=== PATIENT | male | born 1945 | race Caucasian/White ===

== ENCOUNTER 2016-05-15 10:15 | Day surgery (SDC) | payer MEDICARE, BC ==
[2016-05-15] VITALS (22 sets, daily range): BP systolic 96–169; BP diastolic 46–100; PULSE 65–97; RESP 15–26; Ht 185.4 cm; Wt 134.0 kg
[~2016-05-15] VITALS: Ht 185.4 cm; Wt 134.0 kg
[~2016-05-15 10:15] MED LIST: CARV3.1260 PO; DULA1.5P SQ; DULO60CA6 PO; EZET1TAB10 PO; LANT3I SC; MAGN400T38 PO; METF-382 PO; NOVO3I SC; PERCOCET PO; PIOG30TA2 PO; RIVA10TA PO; TAMS-14 PO; ZOLP10TA PO
[2016-05-15] MEDS ORDERED: ROPIVACAINE 0.5 % 30 ML VIAL ONE ×3 (11:03→13:40)
[2016-05-15] MEDS ORDERED: POVIDONE IODINE 10% 28.4 GM OINT ONE ×2 (11:03→15:52)
[2016-05-15] MEDS ORDERED: ROCURONIUM 50 MG INJ ONE ×2 (12:11→14:59)
[2016-05-15] MEDS ORDERED: PROPOFOL 20 ML ONE ×2 (12:11→14:59)
[2016-05-15] MEDS ORDERED: SUCCINYLCHOLINE CHLORIDE 100 MG/5 ML SYG IV ONE ×2 (12:11→14:59)
[2016-05-15] MEDS ORDERED: LIDOCAINE 2% (SDV) 5 ML INJ ONE ×2 (12:11→14:59)
[2016-05-15] MEDS ORDERED: MIDAZOLAM 1 MG/ML 2 ML INJ ONE (12:11)
[2016-05-15 12:20] LABS: BASOPHILS % 0.2 % (0.0-2.0); EOSINOPHILS # 0.2 10^3/ul (0.0-0.5); EOSINOPHILS % 2.7 % (0.0-7.0); HEMATOCRIT 40.3 % (42.0-52.0); HEMOGLOBIN 13.3 g/dl (14.0-18.0); LYMPHOCYTES % 24.4 % (15.0-51.0); MEAN CORPUSCULAR HEMOGLOBIN 25.3 pg (29.0-33.0); MEAN CORPUSCULAR HGB CONC 32.9 g/dl (32.0-37.0); MEAN CORPUSCULAR VOLUME 76.8 fl (82.0-101.0); MEAN PLATELET VOLUME 8.9 fl (7.4-10.4); MONOCYTE # 0.4 10^3/ul (0.3-0.9); NEUTROPHIL # 5.4 10^3/ul (1.6-7.5); NEUTROPHILS % 67.7 % (39.0-77.0); PLATELET COUNT 150 10^3/UL (140-440); RED BLOOD COUNT 5.25 10^6/ul (4.70-6.10)
[2016-05-15 12:21] LABS: ADD UMIC NO; URINE BILIRUBIN (Dip) NEGATIVE (NEGATIVE); URINE BLOOD (Dip) NEGATIVE (NEGATIVE); URINE COLOR LT. YELLOW (YELLOW); URINE GLUCOSE (Dip) NEGATIVE (NEGATIVE); URINE KETONES (Dip) NEGATIVE (NEGATIVE); URINE LEUKOCYTE ESTERASE (Dip) NEGATIVE (NEGATIVE); URINE NITRITE (Dip) NEGATIVE (NEGATIVE); URINE TOTAL PROTEIN (Dip) NEGATIVE (NEGATIVE); URINE UROBILINOGEN (Dip) 0.2 E.U./dL (0.1-1.0)
[2016-05-15 12:23] LABS: CONDITION 1; LH ANALYZER COMMENTS 1
[2016-05-15 12:31] LABS: ALBUMIN 3.7 g/dl (3.3-4.9)
[2016-05-15 12:32] LABS: INR 1.09; PROTIME 14.1 Sec (12.2-14.2); PT RATIO 1.1
[2016-05-15 12:33] LABS: PARTIAL THROMBOPLASTIN TIME 30.3 Sec (25.0-35.0); POTASSIUM 4.4 mmol/L (3.5-5.1)
[2016-05-15 12:34] LABS: ALBUMIN/GLOBULIN RATIO 1.23; BILIRUBIN,INDIRECT 0.7 mg/dl (0-1.1); BILIRUBIN,TOTAL 0.7 mg/dl (0.2-1.3); TOTAL PROTEIN 6.7 g/dl (6.1-8.1)
[2016-05-15 12:35] LABS: CALCIUM 9.1 mg/dl (8.4-10.2); CREATININE 0.85 mg/dl (0.61-1.24)
--- NOTE | 2016-05-15 13:35 | HPN ---
Date/Time of Note Date/Time of Note DATE: 05/15/16 TIME: 13:35 Interval H&P Admission Note Pt. seen H&P reviewed: No system changes KATIA CASILLAS MD May 15, 2016 13:35
[2016-05-15] MEDS: SOD CHLORIDE 0.9% 1,000 ML IV SCH ×2 (13:42→20:25)
[2016-05-15] MEDS ORDERED: CEFAZOLIN 1 GM INJ IV SCH (14:00)
[2016-05-15] MEDS ORDERED: DIPHENHYDRAMINE 25 MG CAP PO PRN (14:00)
[2016-05-15] MEDS ORDERED: ONDANSETRON 4 MG INJ IV PRN ×2 (14:00→16:30)
[2016-05-15] MEDS ORDERED: HYDROmorphONE 0.2 MG/ML PCA IV SCH (14:00)
[2016-05-15] MEDS ORDERED: VANCOMYCIN IV PER PHARMACY XX SCH (14:00)
[2016-05-15] MEDS ORDERED: BISACODYL 10 MG SUPP PR PRN (14:00)
[2016-05-15] MEDS ORDERED: FENTAnyl 50 MCG/ML VIAL ONE (14:13)
[2016-05-15] MEDS ORDERED: VANCOMYCIN 1 GM (PMX) 250 ML ONE (14:26)
[2016-05-15] MEDS ORDERED: ONDANSETRON 4 MG INJ ONE (14:59)
[2016-05-15] MEDS ORDERED: METOCLOPRAMIDE 10 MG INJ ONE (15:00)
[2016-05-15] MEDS ORDERED: POLYMYXIN B 500000 UNIT INJ ONE (15:40)
[2016-05-15] MEDS ORDERED: VANCOMYCIN 1 GM INJ ONE (15:41)
[2016-05-15] MEDS ORDERED: BACITRACIN 50000 UNITS INJ ONE (15:42)
[2016-05-15] MEDS ORDERED: NEOSTIGMINE 3 MG/3 ML SYRINGE ONE (15:57)
[2016-05-15] MEDS ORDERED: GLYCOPYRROLATE 1 MG INJ ONE (15:57)
[2016-05-15] MEDS ORDERED: HYDROmorphONE 2 MG/ML SYG ONE (15:59)
--- NOTE | 2016-05-15 16:04 | RADRPT ---
PROCEDURE: Intraoperative imaging of the right ankle with fluoroscopy. CLINICAL INDICATION: Right ankle pain. Intraoperative. TECHNIQUE: Four images of the right ankle were obtained in the operating room with an image intens ifier. No radiologist was in attendance. 16.7 seconds of fluoroscopy time was used. COMPARISON: No prior study is available for comparison. FINDINGS: Images demonstrate a surgical instrument overlying the tibiotalar joint. IMPRESSION: 1. Intraoperative imaging of the right ankle. RPTAT: QQ .Job Whitfield MD, Date Time Electronically viewed and signed by .Job Whitfield MD, on 05/15/2016 16:04 .R/
[2016-05-15] MEDS ORDERED: HYDROmorphONE (0.2 MG/ML) 10ML SYG IV PRN ×3 (16:30)
[2016-05-15] MEDS ORDERED: PROCHLORPERAZINE 10 MG INJ IV PRN (16:30)
[2016-05-15] MEDS ORDERED: DIPHENHYDRAMINE 50 MG INJ IV PRN (16:30)
[2016-05-15] MEDS ORDERED: OXYCODONE/ACETAMINOPHEN (5/325) TAB PO PRN (16:30)
[2016-05-15] MEDS ORDERED: FENTAnyl 50 MCG/ML VIAL IV PRN (16:30)
[2016-05-15] MEDS ORDERED: MEPERIDINE 25 MG INJ IV PRN (16:30)
[2016-05-15] MEDS ORDERED: INSULIN ASPART [NOVOLOG] 3 ML PEN SC ONE (16:30)
--- NOTE | 2016-05-15 17:24 | RADRPT ---
PROCEDURE: XR Chest. CLINICAL INDICATION: Check PICC line position. Line placement for vancomycin infusion. TECHNIQUE: Single frontal view. COMPARISON: 09/14/2015. FINDINGS: There is a left arm PICC line with the tip in the mid left subclavian vein. The lungs are clear. The heart size is normal. There is no pleural effusion. There is no pneumothorax. IMPRESSION: 1. Left arm PICC line with the tip in the mid left subclavian vein. This is not acceptable for van comycin administration. This needs to be repositioned with the tip in the superior vena cava. 2. Otherwise normal chest radiograph. Call report: A call report of the findings was made to the patient's nurse Sheryl Lai on 017 at 1720 hours. RPTAT: QQ .Job Whitfield MD, MD Date Time Electronically viewed and signed by .Job Whitfield MD, MD on 05/15/2016 17:24 .R/
[2016-05-15] MEDS: CEFAZOLIN 2 GM/50 ML (PMX) 50 ML IVPB SCH (18:01)
[2016-05-15] MEDS: morphine 10 MG INJ IV PRN (18:44)
[2016-05-15] MEDS ORDERED: VANCOMYCIN 1 GM in NS 250 ML IVPB ONE (19:30)
[2016-05-15] MEDS: SENNA/DOCUSATE NA (8.6MG/50MG) TAB PO SCH (20:27)
[2016-05-15] MEDS: OXYCODONE/ACETAMINOPHEN (5/325) TAB PO PRN (20:27)
[2016-05-15] MEDS ORDERED: GLUCOSE GEL 15 GRAM TUBE BUCCAL PRN (20:30)
[2016-05-15] MEDS ORDERED: ZOLPIDEM 5 MG TAB PO PRN (20:30)
[2016-05-15] MEDS: DULOXETINE 30 MG CAP DR PO SCH (20:30)
[2016-05-15] MEDS ORDERED: DEXTROSE 50% 50 ML SYRINGE IV PRN ×2 (20:30)
[2016-05-15] MEDS ORDERED: ARIPIPRAZOLE 2 MG TAB GTB SCH (20:30)
[2016-05-15] MEDS ORDERED: GLUCOSE GEL 15 GRAM TUBE PO PRN ×2 (20:30)
[2016-05-15] MEDS ORDERED: GLUCAGON 1 MG INJ IM PRN (20:30)
[2016-05-15] MEDS: INSULIN ASPART [NOVOLOG] 3 ML PEN SC SCH (20:35)
[2016-05-15 20:49] LABS: BASOPHILS % 0.4 % (0.0-2.0); EOSINOPHILS # 0.1 10^3/ul (0.0-0.5); EOSINOPHILS % 1.3 % (0.0-7.0); HEMATOCRIT 37.1 % (42.0-52.0); HEMOGLOBIN 12.2 g/dl (14.0-18.0); LYMPHOCYTES # 1.8 10^3/ul (0.8-2.9); LYMPHOCYTES % 17.7 % (15.0-51.0); MEAN CORPUSCULAR HEMOGLOBIN 25.2 pg (29.0-33.0); MEAN CORPUSCULAR HGB CONC 32.9 g/dl (32.0-37.0); MEAN CORPUSCULAR VOLUME 76.8 fl (82.0-101.0); MEAN PLATELET VOLUME 8.9 fl (7.4-10.4); MONOCYTE # 0.3 10^3/ul (0.3-0.9); MONOCYTES % 2.6 % (0.0-11.0); NEUTROPHIL # 8.1 10^3/ul (1.6-7.5); PLATELET COUNT 136 10^3/UL (140-440); RED BLOOD COUNT 4.83 10^6/ul (4.70-6.10); RED CELL DISTRIBUTION WIDTH 16.8 % (11.5-14.5); UNCORRECTED WBC 10.4 10^3/ul (4.8-10.8); WHITE BLOOD COUNT 10.4 10^3/ul (4.8-10.8)
[2016-05-15 20:50] LABS: CONDITION 1; LH ANALYZER COMMENTS 1
[2016-05-15] MEDS: metFORMIN 500 MG TAB NGT SCH (20:51)
[2016-05-15] MEDS ORDERED: TAMSULOSIN (SR) 0.4 MG CAP PO SCH (21:00)
[2016-05-15 21:03] LABS: POTASSIUM 3.9 mmol/L (3.5-5.1)
[2016-05-15 21:05] LABS: CREATININE 0.86 mg/dl (0.61-1.24)
[2016-05-15 21:06] LABS: CALCIUM 8.7 mg/dl (8.4-10.2); MAGNESIUM 1.3 mg/dl (1.7-2.5)
--- NOTE | 2016-05-15 22:09 | CONS ---
DATE OF ADMISSION: 05/15/2016 DATE OF CONSULTATION: 05/15/2016 TYPE OF CONSULTATION: Infectious Disease. REASON FOR CONSULTATION: Antibiotic management. HISTORY OF PRESENT ILLNESS: Garett Figueredo is a pleasant 71-year-old white male with numerous prob lems who comes in now for essentially fusion of his ankle. He is to undergo right ankle arthroscopy , extensive right ankle debridement, washout, multiple cultures and arthrodesis, status post ankle f usion infection. The patient is well known to our service and has been seen on a number of occasion s. He was admitted on 09/08/2015. His past problems at that time were: 1. Hypertension. 2. Adult-onset diabetes mellitus, on Metformin, Actos and insulin. 3. Status post knee replacement. 4. Status post lumbosacral back fusion. He also had right ankle surgery, which was done on 016 and had ankle fusion at that time. He had arthroscopy of the right ankle with debridement and i nsertion of demineralized bone and arthrodesis with 3 screws to the right ankle. Postoperatively, susannah fry had some urinary retention. During that hospital course, he was placed to some drainage. He was started on vancomycin and Zosyn then vancomycin and Levaquin. He grew out Staph aureus which was ac tually sensitive to everything. His blood cultures were negative at that time. He had a PICC line that was sent out on that regimen. He was noted to have a subacute osteomyelitis of the right ankle . He had some implants. He now comes in for a fusion of the right ankle. PAST MEDICAL HISTORY: Operations as outlined. FAMILY HISTORY: Noncontributory. He has 1 brother and his parents are . He has a signific ant other. He has no children. SOCIAL HISTORY: Does not smoke, drink or abuse drugs. He has a pet dog at home. ALLERGIES: NONE TO PENICILLIN, SULFA OR FOODS. MEDICATIONS: Per chart. REVIEW OF SYSTEMS: As per HPI. PHYSICAL EXAMINATION: GENERAL: The patient is a well-developed, somewhat obese white male status post surgery today. VITAL SIGNS: Stable. He is afebrile. SKIN: Without generalized rash. HEENT: Within normal limits. NECK: Supple. LYMPH NODES: None palpable. CHEST: Decreased breath sounds at the bases. HEART: Without murmur or gallop. ABDOMEN: Soft, nontender, without organosplenomegaly or masses. EXTREMITIES: Without cyanosis, clubbing, or edema. The right ankle is wrapped, casted or at least wrapped. RECTAL AND GENITAL: Deferred. NEUROLOGIC: No focal neurological abnormalities. IMPRESSION AND PLAN: We are going to start Mr. Figueredo on vancomycin and await the cultures. If the cultures are sensitive to everything, we will send him out on ceftriaxone 1 gram q. 24. I will dict ate my findings to Dr. Thomas. Dictated By: BRIGITTE JIMENEZ MD, JD/RIAZ Conf#: [id number] DID#: [id number]
--- NOTE | 2016-05-15 22:39 | OPR ---
DATE OF OPERATION: 05/15/2016 PREOPERATIVE DIAGNOSES: 1. Status post arthroscopic fusion left ankle. 2. Status post infection of the left ankle after fusion with hardware removal and intravenous antib iotics for 6 weeks. 3. Persistent pain with secondary to degenerative joint disease, rule out residual infection. POSTOPERATIVE DIAGNOSES: 1. Status post arthroscopic fusion left ankle. 2. Status post infection of the left ankle after fusion with hardware removal and intravenous antib iotics for 6 weeks. 3. Persistent pain with secondary to degenerative joint disease, rule out residual infection. NAME OF OPERATION: 1. Arthroscopy of the left ankle, with soft tissue distraction. 2. Extensive debridement of the ankle and removal of much devitalized scar tissue and some bone. 3. Multiple bone and soft tissue cultures sent for anaerobic, aerobic, fungus, and TB. 4. Use of fluoroscopy to verify the position of the ankle and that distraction was still possible a nd there was motion at the nonunion site. 5. Short leg splint. SURGEON: Curtis Casillas MD BOAT PILOT: Feliciano Castaneda ANESTHESIA: General with popliteal block. TOURNIQUET TIME: 70 minutes. DESCRIPTION OF PROCEDURE: The patient taken to the operating room and placed supine. Satisfactory general anesthesia was given after popliteal block had been done. No antibiotics were given until w e got our cultures. The right leg was prepped and draped in the usual manner. As it was distracted , we brought the fluoroscope in to verify that there was still motion at the nonunion site and to fa cilitate our portals. Anteromedial, anterolateral portals were made. Significant fibrosis and scar ring throughout the ankle centrally corresponding to where there was a gap on the x-ray. Using a pi tuitary rongeur, multiple soft tissue cultures were taken for aerobics, anaerobes, TB, and fungus. A special bone biopsy needle was used to remove bone and send it again for aerobes, anaerobes, fungu s, and TB. Multiple specimens were also sent for cytology and pathology assessment. After complete debridement, it was noted that there certainly some bone loss within the tibiotalar joint, which we noticed on x-ray and CT scan. Vancomycin 1 gram was given intravenously slowly after all our cultu res were done. We washed out the ankle with 12 liters of saline and then we inserted tobramycin, vancomycin, and er ythromycin in another 3 liter bag and ran it through the ankle. The wounds were then closed with 4- 0 black nylon. Compression dressing was applied as a push splint in neutral position. Interprocedu re sponge and needle count was correct. The patient tolerated procedure well. No aida infection w as seen, but an awful lot of fibrous debris. AGENCY DEVELOPMENT MANAGER ORTHOPEDIC SURGEON: During the procedure, an assistant golf professional orthopedic surgeon was used at my request. The assistant golf professional helped with distraction, helped with manipulation of the ankle, and with obt aining the cultures. Without a skilled assistant golf professional, this could not have been done; therefore, should be compensated. Dictated By: CURTIS CASILLAS MD RF/NTS Conf#: [id number] DID#: [id number]
[2016-05-16] MEDS: CEFAZOLIN 2 GM/50 ML (PMX) 50 ML IVPB SCH ×3 (00:53→18:00)
[2016-05-16] MEDS: OXYCODONE/ACETAMINOPHEN (5/325) TAB PO PRN ×4 (00:53→17:31)
[2016-05-16] MEDS ORDERED: ACCUCHECK AT 2AM (Patients on SS coverage) XX SCH (02:00)
[2016-05-16] MEDS: morphine 10 MG INJ IV PRN ×2 (03:03→16:33)
[2016-05-16 04:35] VITALS: BP 96/53; PULSE 79; RESP 19
--- NOTE | 2016-05-16 04:47 | CONS ---
DATE OF ADMISSION: 05/15/2016 DATE OF CONSULTATION: 05/15/2016 REASON FOR CONSULTATION: Internal medicine consult for diabetes and cardiac arrhythmia status post surgery. Medical management of a surgical patient. REQUESTING PHYSICIAN: Dr. Curtis Thomas of orthopedic surgery. HISTORY OF PRESENT ILLNESS: The patient is a very pleasant 71-year-old gentleman with history of di abetes and depression who presented to the hospital status post right ankle incision and drainage an d washout. The patient is currently resting well on the floor. The patient has a long history of right ankle infection which initially started out in 2013 status p ost mechanical injury. The patient had an ORIF and hardware placed in 2013. The patient continued to have pain and had new hardware placed in 2015 that became infected. The patient had his hardware removed in August 2015. Since then, the patient has been on IV antibiotics and is here for an I and D and washout of the right ankle. The patient underwent the washout very successfully without any co mplications. No acute blood loss. Cultures were sent in for identification. The patient is currently on empiric antibiotics of vancom ycin. He has a PICC line and is on perioperative antibiotics of vancomycin and cefazolin. The patient denies any lightheadedness or chest pain. Denies any shortness of breath. No dizziness . The patient does complain of appropriate right ankle tenderness and pain status post surgery. REVIEW OF SYSTEMS: A 12-point review of systems is otherwise negative other than what is mentioned in HPI. ALLERGIES: NO KNOWN DRUG ALLERGIES. CURRENT MEDICATIONS: List in the hospital includes 1. Xarelto 10 mg p.o. every day. 2. Vancomycin 1.5 mg every 12 hours. 3. Cefazolin 1 gram every 8 hours. 4. Dilaudid ENGLISH AS A SECOND LANGUAGE INSTRUCTOR. 5. Fentanyl patch. 6. Zofran 4 mg IV q. 4 hours as needed. 7. Demerol 1.25 mg as needed. 8. Compazine 5 mg every 4 hours as needed. HOME MEDICATIONS: The patient is currently on the following medications 1. Flomax 0.4 mg p.o. at bedtime. 2. Xarelto 10 mg p.o. every day. 3. Coreg 3.125 mg p.o. b.i.d. 4. Vytorin 10/40 mg p.o. at bedtime. 5. Cymbalta 60 mg p.o. every day. 6. Percocet 10/325 mg p.o. q. 4 hours as needed. 7. Ambien 10 mg p.o. every day at bedtime p.r.n. for insomnia. 8. Insulin sliding scale. 9. Metformin 1000 mg p.o. b.i.d. 10. Actos 30 mg p.o. every day. PAST MEDICAL HISTORY: 1. BPH. 2. Cardiac arrhythmia with bigeminy and trigeminy, asymptomatic, controlled on Coreg. 3. Depression with Cymbalta and Abilify. 4. Right ankle pain secondary to joint infection. PAST SURGICAL HISTORY: As per HPI. FAMILY HISTORY: Reviewed and noncontributory. PAST HOSPITALIZATION: As per HPI. SOCIAL HISTORY: The patient has a 24-hour caregiver, lives with a partner, and denies any current d rug, alcohol, or tobacco. PHYSICAL EXAMINATION: VITAL SIGNS: On the hospital floor, temperature is 98, blood pressure is 133/71, pulse of 82, respi ratory rate 16, pulse oximetry 99% on 2 liters nasal cannula. GENERAL: The patient was awake, alert, and oriented x4. HEENT: Normocephalic, atraumatic. Sclerae nonicteric. NECK: Thick, supple, no lymphadenopathy noted. CARDIOVASCULAR: Regular rate and rhythm. Normal S1, S2. LUNGS: Clear to auscultation bilaterally. Good respiratory effort. ABDOMEN: Soft, nontender, nondistended, normoactive bowel sounds. EXTREMITIES: No clubbing, cyanosis, or edema. The right leg is in a cast. The patient is able to wiggle his toes. No evidence of cyanosis or neuropathy. LABORATORY DATA: Current laboratories demonstrate WBC is 8, hemoglobin 13.3, platelets 150. Chemis try: Sodium 139, potassium 4.4. BUN is 22, creatinine 0.8, glucose is 166, AST 20, total protein i s 6.7. ASSESSMENT AND PLAN: The patient is a very pleasant but unfortunate 71-year-old gentleman with hist ory of diabetes and depression who presented to the hospital and is currently status post right ankl e incision and drainage and washout. The patient is currently on perioperative antibiotics with emp iric IV antibiotics currently in the hospital after tolerating procedure well without any complicati ons. 1. Status post washout of the right ankle. Management per primary surgeon. The patient will be re ceiving IV antibiotics under the direction of infectious diseases. We will await culture results. Continue current care. Provide pain control. 2. Cardiac arrhythmia, history of bigeminy. Physical examination demonstrates no aida overt cardi ac arrhythmias. EKG shows PVCs, but one in the chart demonstrates a normal sinus rhythm with a QTC interval of 429 without any evidence of an acute infarct. We will continue his Coreg. 3. Depression. We will continue the patient's Cymbalta and Abilify. The patient denies any curren t suicidal or homicidal ideation. We will continue his home medications. 4. Diabetes. We will start metformin and Actos, provide sliding scale insulin. 5. Insomnia. Provide Ambien. 6. Pain control. We will provide pain management with IV pain medications and oral pain medication s. 7. DVT prophylaxis. We will restart Xarelto. 8. GI prophylaxis. We will provide Pepcid, Colace, and Senna. 9. CODE STATUS: The patient is a FULL CODE. Thank you, Dr. Thomas, for allowing me to participate in the care of this patient. Dictated By: JOSÉ MIGUEL WHITNEY/RIAZ Conf#: [id number] DID#: [id number]
[2016-05-16] MEDS ORDERED: VANCOMYCIN 1.5 GM in SOD CHLORIDE 0.9% 250 ML IVPB SCH (05:00)
--- NOTE | 2016-05-16 07:19 | PN ---
Date/Time of Note Date/Time of Note DATE: 05/16/16 TIME: 07:15 Assessment/Plan VTE Prophylaxis VTE Prophylaxis Intervention: SCD's, other Lines/Catheters IV Catheter Type (from [facility]): Peripheral IV Urinary Cath still in place: No Assessment/Plan Chief Complaint/Hosp Course 1) POD#1 s/p right ankle arthroscopic I/D of failed fusion site 2) DM#2 3) Right ankle infection Problems: Assessment/Plan -Doing well -Appreciate ID's help -Sounds like PICC will need to be replaced today -Xarelto for DVT Prophylaxis -NWB RLE Subjective 24 Hr Interval Summary Free Text/Dictation Doing well this morning. No events overnight. Comfortable without pain. Moving toes but no return of sensation from block yet. Constitutional: improved, no complaints Eyes: no complaints ENT: no complaints Respiratory: no complaints Cardiovascular: no complaints, No chest pain Gastrointestinal: no complaints Genitourinary: no complaints Musculoskeletal: no complaints Skin: no complaints Neurologic: no complaints Endocrine: no complaints Lymphatic: no complaints Psychological: nl mood/affect, no complaints Immunologic: no complaints Exam/Review of Systems Vital Signs Vitals Vital Signs Date Time Temp Pulse Resp B/P Pulse Ox O2 Delivery O2 Flow Rate FiO2 05/16/16 04:35 98.3 79 19 96/53 95 Room Air 05/15/16 16:58 2.0 Intake and Output 05/15/16 05/15/16 05/16/16 15:00 23:00 07:00 Intake Total 1000 ml 240 ml 2350 ml Output Total 360 ml 1600 ml Balance 1000 ml -120 ml 750 ml Exam Splint in place on right foot, toes warm and well perfused with normal cap refill. Denies return of sensation currently. Easily dorsiflexing and plantarflexing toes. Splint fitting well. Constitutional: alert, oriented, well developed Results Result Diagram: 05/15/16201905/15/162019 Results 24 hrs Laboratory Tests Test 05/15/16 11:30 05/15/16 11:45 05/15/16 12:00 05/15/16 16:29 Urine Bilirubin NEGATIVE Urine Clarity CLEAR Urine Color LT. YELLOW Urine Glucose NEGATIVE Urine Hemoglobin NEGATIVE Urine Ketones NEGATIVE Urine Leukocyte Esterase NEGATIVE Urine Nitrite NEGATIVE Urine Specific [place] 1.025 Urine Total Protein NEGATIVE Urine Urobilinogen 0.2 E.U./dL Urine pH 5.5 Bedside Glucose 233 H 166 Activated Partial Thromboplast Time 30.3 Alanine Aminotransferase (ALT/SGPT) 24 Albumin 3.7 Albumin/Globulin Ratio 1.23 Alkaline Phosphatase 113 Anion Gap 15 Aspartate Amino Transf (AST/SGOT) 20 Basophils # 0.0 Basophils % 0.2 Blood Morphology Comment Blood Urea Nitrogen 22 H Calcium Level 9.1 Carbon Dioxide Level 27 Chloride Level 101 Creatinine 0.85 Direct Bilirubin 0.00 Eosinophils # 0.2 Eosinophils % 2.7 Globulin 3.00 Glucose Level 200 Hematocrit 40.3 L Hemoglobin 13.3 L INR International Normalized Ratio 1.09 Indirect Bilirubin 0.7 Lymphocytes # 2.0 Lymphocytes % 24.4 Mean Corpuscular Hemoglobin 25.3 L Mean Corpuscular Hemoglobin Concent 32.9 Mean Corpuscular Volume 76.8 L Mean Platelet Volume 8.9 Monocytes # 0.4 Monocytes % 5.0 Neutrophils # 5.4 Neutrophils % 67.7 Nucleated Red Blood Cells # 0.0 Nucleated Red Blood Cells % 0.0 Platelet Count 150 # Potassium Level 4.4 Prothrombin Time 14.1 Prothrombin Time Ratio 1.1 Red Blood Count 5.25 Red Cell Distribution Width 17.0 H Sodium Level 139 Total Bilirubin 0.7 Total Protein 6.7 White Blood Count 8.0 Test 05/15/16 20:20 05/15/16 20:29 Anion Gap 16 Basophils # 0.0 Basophils % 0.4 Blood Morphology Comment Blood Urea Nitrogen 21 H Calcium Level 8.7 Carbon Dioxide Level 24 Chloride Level 100 Creatinine 0.86 Eosinophils # 0.1 Eosinophils % 1.3 Glucose Level 170 Hematocrit 37.1 L Hemoglobin 12.2 L Lymphocytes # 1.8 Lymphocytes % 17.7 Magnesium Level 1.3 L Mean Corpuscular Hemoglobin 25.2 L Mean Corpuscular Hemoglobin Concent 32.9 Mean Corpuscular Volume 76.8 L Mean Platelet Volume 8.9 Monocytes # 0.3 Monocytes % 2.6 Neutrophils # 8.1 H Neutrophils % 78.0 H Nucleated Red Blood Cells # 0.0 Nucleated Red Blood Cells % 0.0 Platelet Count 136 L Potassium Level 3.9 Red Blood Count 4.83 Red Cell Distribution Width 16.8 H Sodium Level 136 White Blood Count 10.4 # Bedside Glucose 174 Medications Medications Current Medications Senna/Docusate Sodium (Senokot-S) 1 tab BID PO Last administered on 05/15/16 20:27; Admin Dose 1 TAB; Start 05/15/16 at 21:00 Magnesium Hydroxide (Milk Of Mag) 30 ml HS PO ; Start 05/17/16 at 21:00 Bisacodyl 10 mg 10 mg DAILY PRN CA CONSTIPATION; Start 05/15/16 at 14:00 Sodium Chloride (NS) 1,000 ml @ 100 mls/hr Q10H IV Last administered on 20:25; Admin Dose 100 MLS/HR; Start 05/15/16 at 13:42 Oxycodone/ Acetaminophen (Percocet (5/ 325)) 2 tab Q4H PRN PO PAIN Last administered on 05/16/16 06:14; Admin Dose 2 TAB; Start 05/15/16 at 14:00 Morphine Sulfate (morphine) 5 mg Q4H PRN IV PAIN LEVEL 7-10 Last administered on 05/16/16 03:03; Admin Dose 5 MG; Start 05/15/16 at 14:00 Ondansetron HCl (Zofran Inj) 4 mg Q4H PRN IV NAUSEA AND/OR VOMITING; Start at 14:00 Diphenhydramine HCl (Benadryl) 25 mg Q4H PRN PO ITCHING; Start 05/15/16 at 14: 00 Hydromorphone HCl 0.2 mg 0.2 mg Q4PCA IV ; Start 05/15/16 at 14:00 Cefazolin Sodium/ Dextrose 50 ml @ 100 mls/hr Q8H IVPB Last administered on 00:53; Admin Dose 100 MLS/HR; Start 05/15/16 at 18:00; Stop 05/17/16 at 10:29 Vancomycin HCl/ Sodium Chloride (Vancocin/NS) 250 ml @ 83.333 mls/ hr Q12H IVPB Last administered on 05/16/16 04:21; Admin Dose 83.333 MLS/HR; Start at 05:00 Carvedilol (Coreg) 3.125 mg BID GTB Last administered on 05/15/16 20:52; Admin Dose 3.125 MG; Start 05/15/16 at 21:00 Pioglitazone HCl (Actos) 30 mg DAILY GTB ; Start 1/17/17 at 09:00 Duloxetine HCl (Cymbalta) 60 mg DAILY PO ; Start 05/15/16 at 20:30 Tamsulosin HCl (Flomax) 0.4 mg HS PO Last administered on 05/15/16t 20:50; Admin Dose 0.4 MG; Start 05/15/16 at 21:00 Diagnostic Test (Pha) (Accucheck) 1 ea 02 XX ; Start 05/16/16 at 02:00 Miscellaneous Information 1 ea NOTE XX ; Start 05/15/16 at 20:30 Glucose (Glutose) 15 gm Q15M PRN PO DECREASED GLUCOSE; Start 05/15/16 at 20:30 Glucose (Glutose) 22.5 gm Q15M PRN PO DECREASED GLUCOSE; Start 05/15/16 at 20: 30 Dextrose (D50w Syringe) 25 ml Q15M PRN IV DECREASED GLUCOSE; Start 05/15/16 at 20:30 Dextrose (D50w Syringe) 50 ml Q15M PRN IV DECREASED GLUCOSE; Start 05/15/16 at 20:30 Glucagon (Glucagen) 1 mg Q15M PRN IM DECREASED GLUCOSE; Start 05/15/16 at 20:30 Glucose (Glutose) 15 gm Q15M PRN BUCCAL DECREASED GLUCOSE; Start 05/15/16 at 20 :30 Aripiprazole (Abilify) 2 mg DAILY PO ; Start 05/16/16 at 09:00 KATIA CASILLAS MD May 16, 2016 07:19
[2016-05-16 08:16] VITALS: BP 152/73; RESP 18
[2016-05-16] MEDS ORDERED: PIOGLITAZONE 30 MG TAB GTB SCH (09:00)
[2016-05-16] MEDS ORDERED: ARIPIPRAZOLE 2 MG TAB PO SCH (09:00)
[2016-05-16 09:09] VITALS: BP 106/58; PULSE 72; RESP 16
--- NOTE | 2016-05-16 09:18 | CONS ---
Date/Time of Note Date/Time of Note DATE: 05/16/16 TIME: 09:16 Assessment/Plan Assessment/Plan Additional Assessment/Plan 1. Stable post picc line placement 2. Infection right ankle, s/p washout, abx noted and to be continued 3. Low mag, will repelete 4. Sugar control acceptable 5. Can dc if ok with ortho Consultation Date/Type/Reason Admit Date/Time Initial Consult Date Detailed Summary Respiratory: No shortness of breath Cardiovascular: No chest pain Gastrointestinal: No no complaints Genitourinary: No no complaints Musculoskeletal: bone/joint pain (mild right ankle discomfort) Exam/Review of Systems Vital Signs Vitals Vital Signs Date Time Temp Pulse Resp B/P Pulse Ox O2 Delivery O2 Flow Rate FiO2 05/16/16 08:16 98.1 75 18 152/73 98 05/16/16 04:35 Room Air 05/15/16 16:58 2.0 Intake and Output 05/15/16 05/15/16 05/16/16 15:00 23:00 07:00 Intake Total 1000 ml 240 ml 2350 ml Output Total 360 ml 1600 ml Balance 1000 ml -120 ml 750 ml Exam Neck: No jvd Respiratory: clear to auscultation Cardiovascular: regular rate and rhythm Gastrointestinal: soft, No tender Extremities: No edema (left lower exrem, right in cast) Results Result Diagram: 05/15/16201905/15/162019 Results 24 hrs Laboratory Tests Test 05/15/16 11:30 05/15/16 11:45 05/15/16 12:00 05/15/16 16:29 Urine Bilirubin NEGATIVE Urine Clarity CLEAR Urine Color LT. YELLOW Urine Glucose NEGATIVE Urine Hemoglobin NEGATIVE Urine Ketones NEGATIVE Urine Leukocyte Esterase NEGATIVE Urine Nitrite NEGATIVE Urine Specific [place] 1.025 Urine Total Protein NEGATIVE Urine Urobilinogen 0.2 E.U./dL Urine pH 5.5 Bedside Glucose 233 H 166 Activated Partial Thromboplast Time 30.3 Alanine Aminotransferase (ALT/SGPT) 24 Albumin 3.7 Albumin/Globulin Ratio 1.23 Alkaline Phosphatase 113 Anion Gap 15 Aspartate Amino Transf (AST/SGOT) 20 Basophils # 0.0 Basophils % 0.2 Blood Morphology Comment Blood Urea Nitrogen 22 H Calcium Level 9.1 Carbon Dioxide Level 27 Chloride Level 101 Creatinine 0.85 Direct Bilirubin 0.00 Eosinophils # 0.2 Eosinophils % 2.7 Globulin 3.00 Glucose Level 200 Hematocrit 40.3 L Hemoglobin 13.3 L INR International Normalized Ratio 1.09 Indirect Bilirubin 0.7 Lymphocytes # 2.0 Lymphocytes % 24.4 Mean Corpuscular Hemoglobin 25.3 L Mean Corpuscular Hemoglobin Concent 32.9 Mean Corpuscular Volume 76.8 L Mean Platelet Volume 8.9 Monocytes # 0.4 Monocytes % 5.0 Neutrophils # 5.4 Neutrophils % 67.7 Nucleated Red Blood Cells # 0.0 Nucleated Red Blood Cells % 0.0 Platelet Count 150 # Potassium Level 4.4 Prothrombin Time 14.1 Prothrombin Time Ratio 1.1 Red Blood Count 5.25 Red Cell Distribution Width 17.0 H Sodium Level 139 Total Bilirubin 0.7 Total Protein 6.7 White Blood Count 8.0 Test 05/15/16 20:20 05/15/16 20:29 Anion Gap 16 Basophils # 0.0 Basophils % 0.4 Blood Morphology Comment Blood Urea Nitrogen 21 H Calcium Level 8.7 Carbon Dioxide Level 24 Chloride Level 100 Creatinine 0.86 Eosinophils # 0.1 Eosinophils % 1.3 Glucose Level 170 Hematocrit 37.1 L Hemoglobin 12.2 L Lymphocytes # 1.8 Lymphocytes % 17.7 Magnesium Level 1.3 L Mean Corpuscular Hemoglobin 25.2 L Mean Corpuscular Hemoglobin Concent 32.9 Mean Corpuscular Volume 76.8 L Mean Platelet Volume 8.9 Monocytes # 0.3 Monocytes % 2.6 Neutrophils # 8.1 H Neutrophils % 78.0 H Nucleated Red Blood Cells # 0.0 Nucleated Red Blood Cells % 0.0 Platelet Count 136 L Potassium Level 3.9 Red Blood Count 4.83 Red Cell Distribution Width 16.8 H Sodium Level 136 White Blood Count 10.4 # Bedside Glucose 174 Medications Medications Current Medications Senna/Docusate Sodium (Senokot-S) 1 tab BID PO Last administered on 05/15/16 20:27; Admin Dose 1 TAB; Start 05/15/16 at 21:00 Magnesium Hydroxide (Milk Of Mag) 30 ml HS PO ; Start 05/17/16 at 21:00 Bisacodyl 10 mg 10 mg DAILY PRN [place] CONSTIPATION; Start 05/15/16 at 14:00 Sodium Chloride (NS) 1,000 ml @ 100 mls/hr Q10H IV Last administered on 20:25; Admin Dose 100 MLS/HR; Start 05/15/16 at 13:42 Oxycodone/ Acetaminophen (Percocet (5/ 325)) 2 tab Q4H PRN PO PAIN Last administered on 05/16/16 06:14; Admin Dose 2 TAB; Start 05/15/16 at 14:00 Morphine Sulfate (morphine) 5 mg Q4H PRN IV PAIN LEVEL 7-10 Last administered on 05/16/16 03:03; Admin Dose 5 MG; Start 05/15/16 at 14:00 Ondansetron HCl (Zofran Inj) 4 mg Q4H PRN IV NAUSEA AND/OR VOMITING; Start at 14:00 Diphenhydramine HCl (Benadryl) 25 mg Q4H PRN PO ITCHING; Start 05/15/16 at 14: 00 Hydromorphone HCl 0.2 mg 0.2 mg Q4PCA IV ; Start 05/15/16 at 14:00 Cefazolin Sodium/ Dextrose (Ancef 2 Gm/50 ml (Pmx)) 50 ml @ 100 mls/hr Q8H IVPB Last administered on 05/16/16 00:53; Admin Dose 100 MLS/HR; Start at 18:00; Stop 05/17/16 at 10:29 Carvedilol (Coreg) 3.125 mg BID GTB Last administered on 05/15/16 20:52; Admin Dose 3.125 MG; Start 05/15/16 at 21:00 Pioglitazone HCl (Actos) 30 mg DAILY GTB ; Start 05/16/16 at 09:00 Duloxetine HCl (Cymbalta) 60 mg DAILY PO ; Start 05/15/16 at 20:30 Tamsulosin HCl (Flomax) 0.4 mg HS PO Last administered on 05/15/16 20:50; Admin Dose 0.4 MG; Start 05/15/16 at 21:00 Diagnostic Test (Pha) (Accucheck) 1 ea 02 XX ; Start 05/16/16 at 02:00 Miscellaneous Information 1 ea NOTE XX ; Start 05/15/16 at 20:30 Glucose (Glutose) 15 gm Q15M PRN PO DECREASED GLUCOSE; Start 05/15/16 at 20:30 Glucose (Glutose) 22.5 gm Q15M PRN PO DECREASED GLUCOSE; Start 05/15/16 at 20: 30 Dextrose (D50w Syringe) 25 ml Q15M PRN IV DECREASED GLUCOSE; Start 05/15/16 at 20:30 Dextrose (D50w Syringe) 50 ml Q15M PRN IV DECREASED GLUCOSE; Start 05/15/16 at 20:30 Glucagon (Glucagen) 1 mg Q15M PRN IM DECREASED GLUCOSE; Start 05/15/16 at 20:30 Glucose (Glutose) 15 gm Q15M PRN BUCCAL DECREASED GLUCOSE; Start 05/15/16 at 20 :30 Aripiprazole 2 mg 2 mg DAILY PO ; Start 05/16/16 at 09:00 Vancomycin HCl (Vancocin) 250 ml @ 125 mls/hr Q12H IVPB ; Start 05/16/16 at 17: 00 Miscellaneous Information (*Rx Drug Level Order Reminder*) VANCO TROUGH @ 1, 600 ON... ONCE ONCE XX ; Start 05/17/16 at 16:00; Stop 05/17/16 at 16:01 OTILIA MENDEZ MD May 16, 2016 09:18
[2016-05-16 09:20] VITALS: BP 119/66; PULSE 74; RESP 24
[2016-05-16] MEDS ORDERED: MAGNESIUM SULFATE 3 GM in SOD CHLORIDE 0.9% 100 ML IVPB ONE (09:30)
--- NOTE | 2016-05-16 09:35 | OPR ---
Date/Time of Note Date/Time of Note DATE: 05/16/16 TIME: 09:28 Operative Report Free Text/Dictation DATE OF OPERATION: 05/15/2016 SURGEON: Manny Hay MD PREOPERATIVE DIAGNOSIS: Right lower extremity osteomyelitis POSTOPERATIVE DIAGNOSIS: same ANESTHESIA: Local BLOOD LOSS: minimal COMPLICATIONS: None. HEPARIN: None CONTRAST: None ACCESS: Left Basilic vein CLOSURE: Manual compression & 3-0 Nylon suture INDICATIONS: This is a 71 year-old male with right lower extremity osteomyelitis requiring shelter antibiotics. Patient has been informed of the alternatives, risks, and benefits. Risks including but not limited to bleeding, thrombosis, embolization, myocardial infarction, , stroke, device malfunction, infection, pneumothorax and patient has agreed to proceed. This is the first in this clinical setting. PROCEDURE: 1. Ultrasound guided access of Left basilic vein 2. Left peripherally inserted central catheter DESCRIPTION: The patient was brought to the recovery room and positioned in the supine position. Left upper extremity was shaved, prepped and draped in the standard sterile fashion. A time-out was completed verifying correct patient, procedure, site, positioning, implant and special equipment prior to beginning this procedure. Local anesthesia was infiltrated in the region of the left upper arm. The catheter was flushed with saline solution to ensure function of each port. Landmarks were identified and an ultrasound machine was used to confirm the basilic vein in the supra antecubital fossa. It was in its usual anatomic location, was patent, compressible, and had non-pulsatile venous blood flow. Attached photo. A 40cm catheter kit was used. The skin and subcutaneous tissues were anesthetized with 10 ml of 1% lidocaine. Using a micro access needle, the vein was punctured and the guidewire advanced under direct ultrasonic visualization. The guidewire advanced without resistance or difficulty. A skin ramon was made at the insertion site, and using Seldinger technique, a dilator was passed over the wire to dilate the subcutaneous tissue. The dilator was exchanged for the catheter and the catheter smoothly advanced. The guidewire was removed without difficulty, and the catheter ports were aspirated, flushed with saline, and capped without complication. The catheter was secured at the desired depth, and a dressing applied. The patient tolerated the procedure well and in fair condition. MANNY HAY MD May 16, 2016 09:35
[2016-05-16] MEDS: SENNA/DOCUSATE NA (8.6MG/50MG) TAB PO SCH (09:37)
[2016-05-16] MEDS: metFORMIN 500 MG TAB NGT SCH ×2 (09:38→17:30)
[2016-05-16] MEDS: DULOXETINE 30 MG CAP DR PO SCH (09:38)
--- NOTE | 2016-05-16 09:39 | RADRPT ---
PROCEDURE: XR Chest. CLINICAL INDICATION: PICC line placement TECHNIQUE: An AP view of the chest was obtained. COMPARISON: Chest x-ray dated 05/15/2016 FINDINGS: There is a left upper extremity PICC line. The tip is difficult to visualize but appears to be near the junction of the left brachiocephalic vein and SVC. There is prominence of the interstitial markings. No pleural effusion or pneumothorax is seen. Th e cardiomediastinal silhouette is within normal limits for size. Calcifications are seen within the aortic arch. The osseous structures demonstrate senescent changes. IMPRESSION: 1. Mild prominence of the interstitial markings, may reflect mild underlying interstitial edema or chronic lung changes. No significant interval change. 2. Aortic atherosclerosis. 3. Left upper extremity PICC line. The tip is difficult to visualize but appears to be near the ju nction of the left brachiocephalic vein and SVC. RPTAT: HH .Machelle Leyva MD, MD Date Time Electronically viewed and signed by .Machelle Leyva MD, on 05/16/2016 09:39 .G/
--- NOTE | 2016-05-16 09:41 | OPR ---
Date/Time of Note Date/Time of Note DATE: 05/16/16 TIME: 09:36 Operative Report Free Text/Dictation DATE OF OPERATION: 05/16/2016 SURGEON: Manny Hay MD PREOPERATIVE DIAGNOSIS: Right lower extremity osteomyelitis POSTOPERATIVE DIAGNOSIS: same ANESTHESIA: Local BLOOD LOSS: minimal COMPLICATIONS: None. HEPARIN: None CONTRAST: None ACCESS: Left Basilic vein CLOSURE: Manual compression & 3-0 Nylon suture INDICATIONS: This is a 71 year-old male with right lower extremity osteomyelitis requiring intermediate antibiotics. PICC was placed and terminated at its full length in the mid subclavian vein. Will exchange to a longer catheter today . Patient has been informed of the alternatives, risks, and benefits. Risks including but not limited to bleeding, thrombosis, embolization , myocardial infarction, , stroke, device malfunction, infection, pneumothorax and patient has agreed to proceed. This is the first in this clinical setting. PROCEDURE: 1. Exchange of Left peripherally inserted central catheter (50cm) DESCRIPTION: The patient was brought to the recovery room and positioned in the supine position. Left upper extremity was shaved, prepped and draped in the standard sterile fashion. A time-out was completed verifying correct patient, procedure, site, positioning, implant and special equipment prior to beginning this procedure. Local anesthesia was infiltrated in the region of the left upper arm. The catheter was flushed with saline solution to ensure function of each port. A 50cm catheter kit was used. The skin and subcutaneous tissues were anesthetized with 10 ml of 1% lidocaine. Using a 014 exchange wire the access was obtained through the already placed PICC line. The PICC line was then removed over the 014 wire successfully. At this point the catheter was smoothly advanced over wire to its full length. The wire was then removed without difficulty, and the catheter ports were aspirated, flushed with saline, and capped without complication. The catheter was secured at the desired depth, and a dressing applied. The patient tolerated the procedure well and in fair condition. CXR obtained and catheter in adequate position. MANNY HAY MD May 16, 2016 09:41
[2016-05-16] MEDS: SOD CHLORIDE 0.9% 1,000 ML IV SCH (09:43)
[2016-05-16] MEDS: INSULIN ASPART [NOVOLOG] 3 ML PEN SC SCH ×3 (09:55→17:40)
--- NOTE | 2016-05-16 12:04 | PN ---
DATE: 05/16/2016 SUBJECTIVE: No changes overnight. No fevers. The patient is alert, feels good. Denies pain, disc omfort. No labs this morning. MICROBIOLOGY: Intraoperative cultures pending. INDWELLINGS: The patient has PICC line placed today in his left upper extremity. ANTIMICROBIALS: 1. Ancef. 2. Vancomycin. PHYSICAL EXAMINATION: GENERAL: Well-developed, well-nourished elderly man who is alert, in no distress. HEENT: Head atraumatic, normocephalic. Sclerae anicteric. Buccal mucosa dry. NECK: Supple, trachea midline. CHEST: Rise symmetrical. Breath sounds diminished to bases. HEART: S1, S2. ABDOMEN: Soft, bowel tones present. EXTREMITIES: Without cyanosis. Right lower extremity in a cast. ASSESSMENT: 1. Left ankle arthroscopy with extensive debridement and removal of scar tissue and some bone. 2. History of left ankle osteomyelitis with infected hardware that was removed. 3. Diabetes. 4. Hypertension. 5. History of lumbosacral back fusion. PLAN: The patient remains stable. His previous culture grew oxacillin-sensitive Staphylococcus aur eus. His intraoperative cultures on this admission are pending. We will await for final cultures. Continue him on vancomycin for now. Complete postoperative Ancef. Dictated By: YESSI WREN SYRUP MIXER HELPER for BRIGITTE CANNON/RIAZ Conf#: [id number] DID#: [id number]
--- NOTE | 2016-05-16 14:23 | RADRPT ---
Vent Rate: 82 bpm RR Interval: 0 msec OK Interval: 184 msec QRS Duration: 86 msec QT Interval: 368 msec QTC Interval: 429 msec P-R-T [place]: 37 - -5 - 64 degrees Normal sinus rhythm Low voltage QRS Cannot rule out Anterior infarct , age undetermined Abnormal ECG Electronically Signed By: Hong Burden [id number]
[2016-05-16] MEDS ORDERED: VANCOMYCIN 1 GM in NS 250 ML IVPB SCH (17:00)
[2016-05-16] MEDS ORDERED: RIVAROXABAN 10 MG TABLET PO SCH (17:55)
[2016-05-17] MEDS ORDERED: MAGNESIUM HYDROXIDE 30ML CUP PO SCH (21:00)
== END 2016-05-16 19:00 | disposition home or self-care (01) ==
LOC: SDS 10:15 → MS1 18:37 → SDS 05-16 19:00
PROVIDERS: ATTEND Orthopaedic Surgery
DX: T84.59XA Infection and inflammatory reaction due to other internal joint prosthesis, initial encounter (principal); Y79.8 Miscellaneous orthopedic devices associated with adverse incidents, not elsewhere classified; Y92.89 Other specified places as the place of occurrence of the external cause; E11.9 Type 2 diabetes mellitus without complications; I10 Essential (primary) hypertension; E66.01 Morbid (severe) obesity due to excess calories; Z68.39 Body mass index [BMI] 39.0-39.9, adult
CPT/HCPCS: 29898; 71010; 73610; 80048; 80053; 81003; 82962; 83735; 85025; 85610; 85730; 87070; 87075; 87102; 87116; 88104; 88304; 88305; 88311; 93005; J0330; J0690; J1170; J1815; J2250; J2270; J2405; J2710; J2765; J2795; J3010; J3370; J3475; J7030; J7050

== ENCOUNTER 2016-07-31 05:18 | Inpatient (IN) | payer MEDICARE, BC ==
[2016-07-31] VITALS (35 sets, daily range): BP systolic 95–163; BP diastolic 54–79; PULSE 74–104; RESP 12–20; Ht 185.4 cm; Wt 141.5 kg
[~2016-07-31] VITALS: Ht 185.4 cm; Wt 141.5 kg
[2016-07-31] MEDS ORDERED: LIDOCAINE 2% (SDV) 5 ML INJ ONE (06:14)
[2016-07-31] MEDS ORDERED: NEOSTIGMINE 3 MG/3 ML SYRINGE ONE (06:14)
[2016-07-31] MEDS ORDERED: PROPOFOL 20 ML ONE (06:14)
[2016-07-31] MEDS ORDERED: GLYCOPYRROLATE 1 MG INJ ONE (06:14)
[2016-07-31] MEDS ORDERED: FENTAnyl 50 MCG/ML VIAL ONE ×3 (06:14→13:17)
[2016-07-31] MEDS ORDERED: ROCURONIUM 50 MG INJ ONE (06:14)
[2016-07-31] MEDS ORDERED: MIDAZOLAM 1 MG/ML 2 ML INJ ONE (06:14)
[2016-07-31] MEDS ORDERED: LIDOCAINE 2%/EPI 30 ML INJ ONE (06:22)
[2016-07-31] MEDS ORDERED: ROPIVACAINE 0.5 % 30 ML VIAL ONE ×3 (06:22→14:09)
[2016-07-31] MEDS ORDERED: DEXAMETHASONE 4 MG/ML 1 ML INJ ONE (06:27)
[2016-07-31] MEDS ORDERED: ONDANSETRON 4 MG INJ ONE (06:27)
[2016-07-31] MEDS ORDERED: DIPHENHYDRAMINE 50 MG INJ IV PRN (06:30)
[2016-07-31] MEDS ORDERED: morphine (1 MG/ML) 10ML SYRINGE IV PRN ×3 (06:30)
[2016-07-31] MEDS ORDERED: OXYCODONE/ACETAMINOPHEN (5/325) TAB PO PRN ×2 (06:30)
[2016-07-31] MEDS ORDERED: MIDAZOLAM 1 MG/ML 2 ML INJ IV PRN (06:30)
[2016-07-31] MEDS ORDERED: LABETALOL HCL 20MG INJ IV PRN (06:30)
[2016-07-31] MEDS ORDERED: EPHEDrine SULFATE 50 MG/5 ML SYG IV PRN (06:30)
[2016-07-31] MEDS ORDERED: FENTAnyl 50 MCG/ML VIAL IV PRN (06:30)
[2016-07-31] MEDS ORDERED: hydrALAzine 20 MG INJ IV PRN (06:30)
[2016-07-31] MEDS ORDERED: MEPERIDINE 25 MG INJ IV PRN (06:30)
[2016-07-31] MEDS ORDERED: ATROPINE 1 MG/10 ML SYRINGE IV PRN (06:30)
[2016-07-31] MEDS ORDERED: HYDROmorphONE (0.2 MG/ML) 10ML SYG IV PRN ×3 (06:30)
[2016-07-31] MEDS ORDERED: ONDANSETRON 4 MG INJ IV PRN ×2 (06:30→07:30)
[2016-07-31] MEDS ORDERED: GELATIN SIZE 100 SPONGE ONE (06:47)
[2016-07-31] MEDS ORDERED: POLYMYXIN/BACITRACIN 1L IRRIG ONE ×2 (06:48→12:09)
[2016-07-31] MEDS ORDERED: POVIDONE IODINE 10% 28.4 GM OINT ONE (06:48)
[2016-07-31] MEDS ORDERED: THROMBIN 5000 UNIT VIAL ONE (06:48)
[2016-07-31 06:49] LABS: ADD SCAN DIFF NO
[2016-07-31 06:51] LABS: BASOPHILS % 0.4 % (0.0-2.0); EOSINOPHILS # 0.2 10^3/ul (0.0-0.5); HEMOGLOBIN 12.2 g/dl (14.0-18.0); LYMPHOCYTES # 2.3 10^3/ul (0.8-2.9); LYMPHOCYTES % 24.2 % (15.0-51.0); MEAN CORPUSCULAR HEMOGLOBIN 25.5 pg (29.0-33.0); MEAN CORPUSCULAR HGB CONC 31.3 g/dl (32.0-37.0); MEAN CORPUSCULAR VOLUME 81.6 fl (82.0-101.0); MEAN PLATELET VOLUME 11.2 fl (7.4-10.4); MONOCYTE # 0.6 10^3/ul (0.3-0.9); MONOCYTES % 5.8 % (0.0-11.0); NEUTROPHIL # 6.3 10^3/ul (1.6-7.5); NEUTROPHILS % 67.4 % (39.0-77.0); PLATELET COUNT 141 10^3/UL (140-415); RED BLOOD COUNT 4.78 10^6/ul (4.70-6.10); RED CELL DISTRIBUTION WIDTH 13.9 % (11.5-14.5); WHITE BLOOD COUNT 9.4 10^3/ul (4.8-10.8)
[2016-07-31 06:55] LABS: ALBUMIN 3.6 g/dl (3.3-4.9)
[2016-07-31 06:58] LABS: ALBUMIN/GLOBULIN RATIO 1.24; BILIRUBIN,INDIRECT 0.4 mg/dl (0-1.1); BILIRUBIN,TOTAL 0.4 mg/dl (0.2-1.3); INR 1.13; PROTIME 14.5 Sec (12.2-14.2); PT RATIO 1.1; TOTAL PROTEIN 6.5 g/dl (6.1-8.1)
[2016-07-31 06:59] LABS: PARTIAL THROMBOPLASTIN TIME 30.5 Sec (25.0-35.0)
[2016-07-31] MEDS ORDERED: SUCCINYLCHOLINE CHLORIDE 100 MG/5 ML SYG IV ONE (07:00)
[2016-07-31] MEDS ORDERED: EPHEDrine SULFATE 50 MG/5 ML SYG ONE (07:00)
[2016-07-31 07:03] LABS: CALCIUM 9.1 mg/dl (8.4-10.2); CREATININE 0.97 mg/dl (0.61-1.24); POTASSIUM 4.1 mmol/L (3.5-5.1)
--- NOTE | 2016-07-31 07:04 | HPN ---
Date/Time of Note Date/Time of Note DATE: 07/31/16 TIME: 07:04 Interval H&P Admission Note Pt. seen H&P reviewed: No system changes KATIA CASILLAS MD Jul 31, 2016 07:04
[2016-07-31] MEDS ORDERED: morphine 10 MG INJ IV PRN (07:30)
[2016-07-31] MEDS ORDERED: BISACODYL 10 MG SUPP PR PRN (07:30)
[2016-07-31] MEDS ORDERED: CEFAZOLIN 1 GM INJ IV SCH (07:30)
[2016-07-31] MEDS ORDERED: DIPHENHYDRAMINE 25 MG CAP PO PRN (07:30)
[2016-07-31] MEDS ORDERED: VANCOMYCIN 1 GM (PMX) 250 ML ONE (07:50)
[2016-07-31] MEDS ORDERED: LIDOCAINE 100 MG SYRINGE ONE (08:46)
--- NOTE | 2016-07-31 12:36 | RADRPT ---
PROCEDURE: Intraoperative imaging of the right ankle with fluoroscopy. CLINICAL INDICATION: Right ankle pain. Intraoperative. TECHNIQUE: 16 images of the right ankle were obtained in the operating room with an image intensif ier. No radiologist was in attendance. 0.9 minutes of fluoroscopy time was used. COMPARISON: Right ankle intraoperative images dated 05/15/2016. FINDINGS: Images demonstrate surgical instruments overlying the right ankle and subsequent fusion with a alice e xtending through the calcaneus, talus, and tibia. Locking screws are also present in the calcaneus, talus, and tibia. IMPRESSION: 1. Intraoperative imaging of the right ankle. RPTAT: QQ .Job Whitfield MD, MD Date Time Electronically viewed and signed by .Job Whitfield MD, on 07/31/2016 12:36 .R/
[2016-07-31] MEDS ORDERED: VANCOMYCIN 1 GM INJ ONE (13:29)
[2016-07-31] MEDS ORDERED: VANCOMYCIN 1 GM (PMX) 250 ML IVPB SCH (14:30)
[2016-07-31] MEDS: HYDROmorphONE 0.2 MG/ML PCA IV SCH (14:49)
[2016-07-31] MEDS: FENTAnyl 50 MCG/ML VIAL IV PRN ×2 (15:30→15:40)
[2016-07-31] MEDS ORDERED: INSULIN ASPART [NOVOLOG] 3 ML PEN SC ONE (16:00)
[2016-07-31] MEDS: OXYCODONE/ACETAMINOPHEN (5/325) TAB PO PRN ×2 (16:47→21:43)
--- NOTE | 2016-07-31 16:49 | CONS ---
DATE OF ADMISSION: 07/31/2016 DATE OF CONSULTATION: 07/31/2016 TYPE OF CONSULTATION: Infectious Disease. REASON FOR CONSULTATION: Antibiotic management. HISTORY OF PRESENT ILLNESS: Garett Figueredo is a 71-year-old male well known to me from previous admissi on. I had seen him in the hospital in April and consulted on him on 05/15/2016. He comes in now for fusion of his right ankle status post infection. His past problems include: 1. Hypertension. 2. Adult-onset diabetes mellitus. 3. Status post knee replacement. 4. Status post lumbosacral back fusion. 5. Status post right ankle surgery done on 06/03/2015. He had ankle fusion at that time. He had a rthroscopy of the right ankle with debridement and insertion of demineralized bone and arthrodesis w ith 3 screws to the right ankle. Postoperatively, he had some urinary retention. He had some drain age from the wound and was placed on vancomycin and Zosyn and then vancomycin and Levaquin. He grew out Staph aureus which was sensitive to everything. His blood cultures were negative at that time, had a PICC line placed and was sent out on that regimen. He was noted to have subacute osteomyelit is of the right ankle and came in on the for right ankle fusion. However, he was infected, and he was started on vancomycin for 6 to 8 weeks. He now returns for right ankle fusion. PAST MEDICAL HISTORY: Operations as outlined. FAMILY HISTORY: Noncontributory. SOCIAL HISTORY: He does not smoke, drink or abuse drugs. ALLERGIES: NONE TO PENICILLIN, SULFA OR FOODS. MEDICATIONS: Per chart. REVIEW OF SYSTEMS: As per HPI. PHYSICAL EXAMINATION: GENERAL: The patient is well-developed, well-nourished, somewhat obese white male who is status pos t surgery today. SKIN: Without generalized rash. HEENT: Within normal limits. NECK: Supple. LYMPH NODES: None palpable. CHEST: Decreased breath sounds at the bases. HEART: Without murmur or gallop. ABDOMEN: Soft, nontender without organosplenomegaly or masses. EXTREMITIES: Without cyanosis, clubbing or edema. The right ankle is wrapped. RECTAL AND GENITAL: Deferred. NEUROLOGIC: No focal neurological abnormalities. Cultures were done in the operating room, and the patient was started on vancomycin. I will dictate my findings to Dr. Curtis Thomas. According to the x-ray, there are surgical instruments overlyin g the right ankle subsequent fusion with a alice extending through the calcaneus, talus and tibia. Lo cking screws are also present to the calcaneus, talus and tibia. Will continue on vancomycin, await cultures. Dictated By: BRIGITTE JIMENEZ MD, JD/RIAZ Conf#: [id number] DID#: [id number]
[2016-07-31] MEDS ORDERED: DEXTROSE 50% 50 ML SYRINGE IV PRN ×2 (17:30)
[2016-07-31] MEDS ORDERED: GLUCOSE GEL 15 GRAM TUBE BUCCAL PRN (17:30)
[2016-07-31] MEDS ORDERED: GLUCOSE GEL 15 GRAM TUBE PO PRN ×2 (17:30)
[2016-07-31] MEDS ORDERED: GLUCAGON 1 MG INJ IM PRN (17:30)
[2016-07-31] MEDS ORDERED: metFORMIN 500 MG TAB PO SCH (17:55)
[2016-07-31] MEDS: VANCOMYCIN 1.5 GM in SOD CHLORIDE 0.9% 250 ML IVPB SCH ×2 (18:00→19:41)
[2016-07-31] MEDS: CEFAZOLIN 1 GM/50 ML (PMX) 50 ML IVPB SCH (18:53)
[2016-07-31] MEDS: SOD CHLORIDE 0.9% 1,000 ML IV SCH (18:53)
[2016-07-31] MEDS: INSULIN ASPART [NOVOLOG] 3 ML PEN SC SCH (18:54)
--- NOTE | 2016-07-31 19:40 | CONS ---
DATE OF ADMISSION: 07/31/2016 DATE OF CONSULTATION: 07/31/2016 TYPE OF CONSULTATION: Gastroenterology. Dr. Thomas: Thank you very much for allowing me to evaluate this 71-year-old male who just underwent right ankle surgery. HISTORICAL EVENTS: As you well know, I had the opportunity to evaluate him postoperatively had rad ng his right ankle watershed in April of this year. He was admitted today to undergo definitive r ight ankle surgery after having been on IV antibiotics for at least 1 month. The patient indicates that no infection was noted postoperatively in April and relayed a long history of right ankle inf ection which began in 2013 post-mechanical injury. Postoperatively, he is comfortable without cough , wheezing, shortness of breath, nausea, vomiting, abdominal or chest pain. PAST MEDICAL HISTORY: Hypertension, prostatism, hyperlipidemia, diabetes mellitus. FAMILY HISTORY: Not reviewed. SOCIAL HISTORY: Lives with his partner. Does not drink or smoke. MEDICATIONS: 1. Flomax 0.4. 2. Xarelto. 3. Coreg 3.125 b.i.d. 4. Vytorin 10/40. 5. Cymbalta 60 6. Ambien 10 7. NovoLog before meals. 8. Lantus HS. 9. Max sulfate. 10. Metformin 500 b.i.d. PHYSICAL EXAMINATION: GENERAL: [place] male in no acute distress. VITAL SIGNS: BP 122/80, pulse 70, respirations are 20, he was afebrile. EYES: Extraocular muscles were full. NOSE, MOUTH, AND THROAT: Normal. NECK: Supple. There was no jugular venous distention, thyroid enlargement or adenopathy. LUNGS: Clear. HEART: Rhythm regular. ABDOMEN: Obese. Liver and spleen not palpable. No tenderness. EXTREMITIES: Right ankle was in a soft cast. The left revealed no edema or calf tenderness. IMPRESSION: 1. Stable postoperatively right ankle surgery. 2. History of diabetes. We will continue Lantus, AC short-acting insulin coverage. 3. Hypertension. Continue antihypertensive therapy as he was taking at home. 4. Hyperlipidemia, to continue his same regimen. PLAN: Will follow him daily with you. Thank you very much. Dictated By: OTILIA MENDEZ MD MR/NTS Conf#: [id number] DID#: [id number]
[2016-07-31] MEDS ORDERED: TAMSULOSIN (SR) 0.4 MG CAP PO SCH (21:00)
[2016-07-31] MEDS: SENNA/DOCUSATE NA (8.6MG/50MG) TAB PO SCH ×2 (21:00→21:10)
[2016-07-31] MEDS: DULOXETINE 30 MG CAP DR PO SCH (21:42)
[2016-07-31] MEDS: MAGNESIUM OXIDE 400 MG TAB PO SCH (21:45)
[2016-07-31] MEDS: INSULIN GLARGINE [LANtus] 3 ML PEN SC SCH (21:46)
[2016-08-01] MEDS: SOD CHLORIDE 0.9% 1,000 ML IV SCH ×3 (02:06→18:08)
[2016-08-01] MEDS: CEFAZOLIN 1 GM/50 ML (PMX) 50 ML IVPB SCH ×3 (02:07→18:07)
[2016-08-01] MEDS: HYDROmorphONE 0.2 MG/ML PCA IV SCH ×3 (02:10→19:53)
[2016-08-01] MEDS: OXYCODONE/ACETAMINOPHEN (5/325) TAB PO PRN ×4 (02:11→18:44)
[2016-08-01 05:26] LABS: ADD SCAN DIFF NO
[2016-08-01 05:35] LABS: BASOPHILS % 0.1 % (0.0-2.0); EOSINOPHILS % 0.1 % (0.0-7.0); HEMATOCRIT 30.2 % (42.0-52.0); HEMOGLOBIN 9.3 g/dl (14.0-18.0); LYMPHOCYTES # 2.4 10^3/ul (0.8-2.9); LYMPHOCYTES % 13.8 % (15.0-51.0); MEAN CORPUSCULAR HEMOGLOBIN 25.5 pg (29.0-33.0); MEAN CORPUSCULAR HGB CONC 30.8 g/dl (32.0-37.0); MEAN PLATELET VOLUME 11.8 fl (7.4-10.4); MONOCYTE # 1.4 10^3/ul (0.3-0.9); MONOCYTES % 8.1 % (0.0-11.0); NEUTROPHIL # 13.4 10^3/ul (1.6-7.5); NEUTROPHILS % 77.5 % (39.0-77.0); PLATELET COUNT 171 10^3/UL (140-415); RED BLOOD COUNT 3.64 10^6/ul (4.70-6.10); WHITE BLOOD COUNT 17.2 10^3/ul (4.8-10.8)
[2016-08-01 05:45] VITALS: BP 113/53; PULSE 100; RESP 20
[2016-08-01] MEDS: VANCOMYCIN 1.5 GM in SOD CHLORIDE 0.9% 250 ML IVPB SCH (05:47)
[2016-08-01 05:55] LABS: POTASSIUM 5.2 mmol/L (3.5-5.1)
[2016-08-01 05:57] LABS: CREATININE 1.78 mg/dl (0.61-1.24)
[2016-08-01 05:58] LABS: CALCIUM 7.4 mg/dl (8.4-10.2); PHOSPHORUS 5.4 mg/dl (2.5-4.9)
[2016-08-01 05:59] LABS: MAGNESIUM 1.4 mg/dl (1.7-2.5)
--- NOTE | 2016-08-01 07:08 | PN ---
Date/Time of Note Date/Time of Note DATE: 08/01/16 TIME: 07:01 Assessment/Plan VTE Prophylaxis VTE Prophylaxis Intervention: ambulation, SCD's Lines/Catheters IV Catheter Type (from Nrsg): Saline Lock Assessment/Plan Assessment/Plan 71 y/o diabetic male with a h/o infected ankle nonunion who has since cleared the infection and is now POD 1 s/p ankle and subtalar arthrodesis - Continue IV vancomycin per Dr Abarca recommendations - follow-up cultures - non-weight bearing right lower extremity - elevation - mobilize with PT today - cordova catheter 2/2 urinary retention - pain control with ASPHALT DAUBER, transition to oral medications today - SCD/xarelto for DVT ppx Subjective 24 Hr Interval Summary Free Text/Dictation Patient reports that his pain has been well controlled. He had some difficulty urinating overnight and a catheter was placed. He has not ambulated with PT yet. Her denies nausea or emesis. His toes still feel numb. Constitutional: no complaints Exam/Review of Systems Vital Signs Vitals Vital Signs Date Time Temp Pulse Resp B/P Pulse Ox O2 Delivery O2 Flow Rate FiO2 08/01/16 05:45 98.1 100 20 113/53 99 Nasal Cannula 2.0 Intake and Output 07/31/16 07/31/16 08/01/16 15:00 23:00 07:00 Intake Total 2100 ml 250 ml 1450 ml Output Total 200 ml 600 ml Balance 1900 ml 250 ml 850 ml Exam RLE: Elevated on pillow Splint in place, clean, dry and intact Calf is soft and non-tender + toe flexion and extension decreased sensation on the dorsal aspect of his big toe. Otherwise sensation is intact to light touch on the tips of his toes CR < 2 sec throughout toe tips Constitutional: alert, obese, oriented Results Result Diagram: 08/01/16 0423 08/01/16 0423 Results 24 hrs Laboratory Tests Test 07/31/16 15:23 07/31/16 18:43 07/31/16 21:40 08/01/16 04:23 Bedside Glucose 288 H 279 H 242 H White Blood Count 17.2 #H Red Blood Count 3.64 #L Hemoglobin 9.3 #L Hematocrit 30.2 #L Mean Corpuscular Volume 83.0 Mean Corpuscular Hemoglobin 25.5 L Mean Corpuscular Hemoglobin Concent 30.8 L Red Cell Distribution Width 14.0 Platelet Count 171 # Mean Platelet Volume 11.8 H Neutrophils % 77.5 H Lymphocytes % 13.8 L Monocytes % 8.1 Eosinophils % 0.1 Basophils % 0.1 Nucleated Red Blood Cells % 0.0 Neutrophils # 13.4 H Lymphocytes # 2.4 Monocytes # 1.4 H Eosinophils # 0.0 Basophils # 0.0 Nucleated Red Blood Cells # 0.0 Sodium Level 135 Potassium Level 5.2 H Chloride Level 100 Carbon Dioxide Level 24 Anion Gap 16 Blood Urea Nitrogen 38 #H Creatinine 1.78 H Glucose Level 232 H Calcium Level 7.4 L Phosphorus Level 5.4 H Magnesium Level 1.4 L Medications Medications Current Medications Senna/Docusate Sodium (Senokot-S) 1 tab BID PO Last administered on 07/31/16 21 :10; Admin Dose 1 TAB; Start 07/31/16 at 09:00 Magnesium Hydroxide (Milk Of Mag) 30 ml HS PO ; Start 08/02/16 at 21:00 Bisacodyl 10 mg 10 mg DAILY PRN [place] CONSTIPATION; Start 07/31/16 at 07:30 Sodium Chloride (NS) 1,000 ml @ 100 mls/hr Q10H IV Last administered on 02:06; Admin Dose 100 MLS/HR; Start 07/31/16 at 09:00 Oxycodone/ Acetaminophen (Percocet (5/ 325)) 2 tab Q4H PRN PO PAIN Last administered on 08/01/16 06:16; Admin Dose 2 TAB; Start 07/31/16 at 07:30 Morphine Sulfate (morphine) 5 mg Q4H PRN IV PAIN LEVEL 7-10; Start 07/31/16 at 07:30 Ondansetron HCl (Zofran Inj) 4 mg Q4H PRN IV NAUSEA AND/OR VOMITING; Start 07/31 at 07:30 Diphenhydramine HCl (Benadryl) 25 mg Q4H PRN PO ITCHING; Start 07/31/16 at 07:30 Hydromorphone HCl MG/HR CONTINUOUS RATE ... Q4PCA IV Last administered on 02:10; Admin Dose 6 MG; Start 07/31/16 at 07:30 Cefazolin Sodium 50 ml @ 100 mls/hr Q8H IVPB Last administered on 08/01/16 02: 07; Admin Dose 100 MLS/HR; Start 07/31/16 at 10:00; Stop 08/02/16 at 02:29 Vancomycin HCl/ Sodium Chloride (Vancocin/NS) 250 ml @ 83.333 mls/ hr Q12H IVPB Last administered on 08/01/16 05:47; Admin Dose 83.333 MLS/HR; Start at 18:00 Carvedilol (Coreg) 3.125 mg BID PO ; Start 07/31/16 at 21:00 Duloxetine HCl (Cymbalta) 60 mg BID PO Last administered on 07/31/16 21:42; Admin Dose 60 MG; Start 07/31/16 at 21:00 Insulin Glargine (Lantus) 8 unit HS SC Last administered on 07/31/16 21:46; Admin Dose 8 UNIT; Start 07/31/16 at 21:00 Magnesium Oxide (Mag-Ox 400) 400 mg BID PO Last administered on 07/31/16 21:45 ; Admin Dose 400 MG; Start 07/31/16 at 21:00 Pioglitazone HCl (Actos) 30 mg DAILY PO ; Start 08/01/16 at 09:00 Tamsulosin HCl (Flomax) 0.4 mg HS PO Last administered on 07/31/16 21:43; Admin Dose 0.4 MG; Start 07/31/16 at 21:00 Miscellaneous Information 1 ea NOTE XX ; Start 07/31/16 at 17:30 Glucose (Glutose) 15 gm Q15M PRN PO DECREASED GLUCOSE; Start 07/31/16 at 17:30 Glucose (Glutose) 22.5 gm Q15M PRN PO DECREASED GLUCOSE; Start 07/31/16 at 17:30 Dextrose (D50w Syringe) 25 ml Q15M PRN IV DECREASED GLUCOSE; Start 07/31/16 at 17:30 Dextrose (D50w Syringe) 50 ml Q15M PRN IV DECREASED GLUCOSE; Start 07/31/16 at 17:30 Glucagon (Glucagen) 1 mg Q15M PRN IM DECREASED GLUCOSE; Start 07/31/16 at 17:30 Glucose (Glutose) 15 gm Q15M PRN BUCCAL DECREASED GLUCOSE; Start 07/31/16 at 17: 30 KATIA CASILLAS MD Aug 01, 2016 07:08
[2016-08-01 08:07] VITALS: BP 105/54; RESP 20
--- NOTE | 2016-08-01 08:37 | CONS ---
Date/Time of Note Date/Time of Note DATE: 08/01/16 TIME: 08:36 Assessment/Plan Assessment/Plan Additional Assessment/Plan 1. Stable post op right ankle surgery with elev wbc prob sec steroids, u.a and culture ordered 2. DM, control is acceptable 3. BP is controlled. Consultation Date/Type/Reason Admit Date/Time Jul 31, 2016 at 05:18 Initial Consult Date Detailed Summary Respiratory: No cough, No shortness of breath Cardiovascular: No chest pain Genitourinary: other (cordova in place) Musculoskeletal: bone/joint pain (right ankle pain is mild) Exam/Review of Systems Vital Signs Vitals Vital Signs Date Time Temp Pulse Resp B/P Pulse Ox O2 Delivery O2 Flow Rate FiO2 08/01/16 08:07 98.1 63 20 105/54 100 08/01/16 05:45 Nasal Cannula 2.0 Intake and Output 07/31/16 07/31/16 08/01/16 14:59 22:59 06:59 Intake Total 2100 ml 1700 ml Output Total 200 ml 600 ml Balance 1900 ml 1100 ml Exam Neck: No jvd Respiratory: clear to auscultation Cardiovascular: regular rate and rhythm Gastrointestinal: soft Extremities: No edema (and no calf tend) Results Result Diagram: 08/01/16 0423 08/01/16 0423 Results 24 hrs Laboratory Tests Test 07/31/16 15:23 07/31/16 18:43 07/31/16 21:40 08/01/16 04:23 Bedside Glucose 288 H 279 H 242 H White Blood Count 17.2 #H Red Blood Count 3.64 #L Hemoglobin 9.3 #L Hematocrit 30.2 #L Mean Corpuscular Volume 83.0 Mean Corpuscular Hemoglobin 25.5 L Mean Corpuscular Hemoglobin Concent 30.8 L Red Cell Distribution Width 14.0 Platelet Count 171 # Mean Platelet Volume 11.8 H Neutrophils % 77.5 H Lymphocytes % 13.8 L Monocytes % 8.1 Eosinophils % 0.1 Basophils % 0.1 Nucleated Red Blood Cells % 0.0 Neutrophils # 13.4 H Lymphocytes # 2.4 Monocytes # 1.4 H Eosinophils # 0.0 Basophils # 0.0 Nucleated Red Blood Cells # 0.0 Sodium Level 135 Potassium Level 5.2 H Chloride Level 100 Carbon Dioxide Level 24 Anion Gap 16 Blood Urea Nitrogen 38 #H Creatinine 1.78 H Glucose Level 232 H Calcium Level 7.4 L Phosphorus Level 5.4 H Magnesium Level 1.4 L Medications Medications Current Medications Senna/Docusate Sodium (Senokot-S) 1 tab BID PO Last administered on 07/31/16 21 :10; Admin Dose 1 TAB; Start 07/31/16 at 09:00 Magnesium Hydroxide (Milk Of Mag) 30 ml HS PO ; Start 08/02/16 at 21:00 Bisacodyl 10 mg 10 mg DAILY PRN [place] CONSTIPATION; Start 07/31/16 at 07:30 Sodium Chloride (NS) 1,000 ml @ 100 mls/hr Q10H IV Last administered on 02:06; Admin Dose 100 MLS/HR; Start 07/31/16 at 09:00 Oxycodone/ Acetaminophen (Percocet (5/ 325)) 2 tab Q4H PRN PO PAIN Last administered on 08/01/16 06:16; Admin Dose 2 TAB; Start 07/31/16 at 07:30 Morphine Sulfate (morphine) 5 mg Q4H PRN IV PAIN LEVEL 7-10; Start 07/31/16 at 07:30 Ondansetron HCl (Zofran Inj) 4 mg Q4H PRN IV NAUSEA AND/OR VOMITING; Start 07/31 at 07:30 Diphenhydramine HCl (Benadryl) 25 mg Q4H PRN PO ITCHING; Start 07/31/16 at 07:30 Hydromorphone HCl MG/HR CONTINUOUS RATE ... Q4PCA IV Last administered on 02:10; Admin Dose 6 MG; Start 07/31/16 at 07:30 Cefazolin Sodium 50 ml @ 100 mls/hr Q8H IVPB Last administered on 08/01/16 02: 07; Admin Dose 100 MLS/HR; Start 07/31/16 at 10:00; Stop 08/02/16 at 02:29 Vancomycin HCl/ Sodium Chloride (Vancocin/NS) 250 ml @ 83.333 mls/ hr Q12H IVPB Last administered on 08/01/16 05:47; Admin Dose 83.333 MLS/HR; Start at 18:00 Carvedilol (Coreg) 3.125 mg BID PO ; Start 07/31/16 at 21:00 Duloxetine HCl (Cymbalta) 60 mg BID PO Last administered on 07/31/16 21:42; Admin Dose 60 MG; Start 07/31/16 at 21:00 Insulin Glargine (Lantus) 8 unit HS SC Last administered on 07/31/16 21:46; Admin Dose 8 UNIT; Start 07/31/16 at 21:00 Magnesium Oxide (Mag-Ox 400) 400 mg BID PO Last administered on 07/31/16 21:45 ; Admin Dose 400 MG; Start 07/31/16 at 21:00 Pioglitazone HCl (Actos) 30 mg DAILY PO ; Start 08/01/16 at 09:00 Miscellaneous Information 1 ea NOTE XX ; Start 07/31/16 at 17:30 Glucose (Glutose) 15 gm Q15M PRN PO DECREASED GLUCOSE; Start 07/31/16 at 17:30 Glucose (Glutose) 22.5 gm Q15M PRN PO DECREASED GLUCOSE; Start 07/31/16 at 17:30 Dextrose (D50w Syringe) 25 ml Q15M PRN IV DECREASED GLUCOSE; Start 07/31/16 at 17:30 Dextrose (D50w Syringe) 50 ml Q15M PRN IV DECREASED GLUCOSE; Start 07/31/16 at 17:30 Glucagon (Glucagen) 1 mg Q15M PRN IM DECREASED GLUCOSE; Start 07/31/16 at 17:30 Glucose (Glutose) 15 gm Q15M PRN BUCCAL DECREASED GLUCOSE; Start 07/31/16 at 17: 30 Tamsulosin HCl (Flomax) 0.8 mg HS PO ; Start 08/01/16 at 21:00 OTILIA MENDEZ MD Aug 01, 2016 08:37
[2016-08-01] MEDS ORDERED: metFORMIN 500 MG TAB PO SCH (08:45)
[2016-08-01] MEDS: SENNA/DOCUSATE NA (8.6MG/50MG) TAB PO SCH ×2 (09:02→20:59)
[2016-08-01] MEDS: PIOGLITAZONE 30 MG TAB PO SCH (09:02)
[2016-08-01] MEDS: MAGNESIUM OXIDE 400 MG TAB PO SCH ×2 (09:02→20:59)
[2016-08-01] MEDS: DULOXETINE 30 MG CAP DR PO SCH ×2 (09:02→20:58)
[2016-08-01] MEDS: INSULIN ASPART [NOVOLOG] 3 ML PEN SC SCH ×3 (09:08→18:17)
[2016-08-01] MEDS ORDERED: MAGNESIUM SULFATE 3 GM in SOD CHLORIDE 0.9% 100 ML IVPB ONE (09:30)
[2016-08-01] MEDS ORDERED: VANCOMYCIN IV PER PHARMACY XX SCH (10:30)
--- NOTE | 2016-08-01 13:29 | PN ---
DATE: 08/01/2016 SUBJECTIVE: No acute events overnight. The patient is awake, just finished working with physical t herapy, lying comfortably in bed. Looks comfortable, no fevers. LABORATORY DATA: WBC today 17.2, H and H 9.3 and 30.2, platelets 171, neutrophils 77.5. No bands. BUN 38, creatinine 1.78. MICROBIOLOGY: Cultures are pending. ANTIMICROBIALS: The patient is on IV vancomycin. PHYSICAL EXAMINATION: GENERAL: Fragile, elderly man who is awake, in no distress. HEENT: Head atraumatic, normocephalic. Sclerae anicteric. Buccal mucosa dry. NECK: Supple, trachea midline. CHEST: Rise symmetrical. Breath sounds diminished to bases. HEART: S1, S2. ABDOMEN: Soft, bowel sounds present. EXTREMITIES: With right lower extremity cast, Dannie wrapped. ASSESSMENT: 1. Leukocytosis with worsening anemia and increased neutrophils, questionable lab error secondary t o diluted. 2. Status post right ankle and subtalar arthrodesis, postop day #1. 3. History of infected ankle nonunion, completed antibiotics. 4. Diabetes. 5. Hypertension. PLAN: The patient remains clinically and hemodynamically stable. We are going to monitor his labs closely. Await for intraoperative cultures. Follow on CBC and BMP in the a.m. Dictated By: YESSI WREN SWIMMING POOL INSTALLER for BRIGITTE CANNON/RIAZ Conf#: [id number] DID#: [id number]
--- NOTE | 2016-08-01 15:00 | RADRPT ---
PROCEDURE: XR Chest. CLINICAL INDICATION: Shortness of breath. TECHNIQUE: Single frontal view. COMPARISON: 05/16/2016. FINDINGS: The lungs are clear. Left arm PICC line has been removed. The heart size is normal. There is no pleural effusion. There is no pneumothorax. IMPRESSION: 1. Left arm PICC line removed. 2. Otherwise normal chest x-ray. RPTAT: QQ .Job Whitfield MD, MD Date Time Electronically viewed and signed by .Job Whitfield MD, MD on 08/01/2016 15:00 .R/
[2016-08-01 15:19] LABS: ADD UMIC YES; URINE BILIRUBIN (Dip) NEGATIVE (NEGATIVE); URINE BLOOD (Dip) 1+ (NEGATIVE); URINE COLOR LT. YELLOW (YELLOW); URINE GLUCOSE (Dip) NEGATIVE (NEGATIVE); URINE KETONES (Dip) NEGATIVE (NEGATIVE); URINE LEUKOCYTE ESTERASE (Dip) NEGATIVE (NEGATIVE); URINE NITRITE (Dip) NEGATIVE (NEGATIVE); URINE TOTAL PROTEIN (Dip) NEGATIVE (NEGATIVE); URINE UROBILINOGEN (Dip) 0.2 E.U./dL (0.1-1.0)
[2016-08-01 15:40] LABS: BACTERIA,URINE FEW; TRANSITIONAL EPI CELLS,URINE FEW
[2016-08-01 16:13] LABS: ADD SCAN DIFF NO
[2016-08-01 17:58] LABS: BASOPHILS % 0.2 % (0.0-2.0); EOSINOPHILS # 0.1 10^3/ul (0.0-0.5); EOSINOPHILS % 0.7 % (0.0-7.0); HEMATOCRIT 26.5 % (42.0-52.0); HEMOGLOBIN 8.1 g/dl (14.0-18.0); LYMPHOCYTES # 1.7 10^3/ul (0.8-2.9); MEAN CORPUSCULAR HEMOGLOBIN 25.6 pg (29.0-33.0); MEAN CORPUSCULAR HGB CONC 30.6 g/dl (32.0-37.0); MEAN CORPUSCULAR VOLUME 83.6 fl (82.0-101.0); MEAN PLATELET VOLUME 11.1 fl (7.4-10.4); MONOCYTES % 8.6 % (0.0-11.0); NEUTROPHIL # 8.4 10^3/ul (1.6-7.5); NEUTROPHILS % 75.1 % (39.0-77.0); PLATELET COUNT 136 10^3/UL (140-415); RED BLOOD COUNT 3.17 10^6/ul (4.70-6.10); WHITE BLOOD COUNT 11.2 10^3/ul (4.8-10.8)
[2016-08-01] MEDS: RIVAROXABAN 10 MG TABLET PO SCH (18:08)
[2016-08-01 20:55] VITALS: BP 110/56; RESP 20
[2016-08-01] MEDS: TAMSULOSIN (SR) 0.4 MG CAP PO SCH (20:59)
[2016-08-01] MEDS: INSULIN GLARGINE [LANtus] 3 ML PEN SC SCH (21:00)
--- NOTE | 2016-08-02 00:44 | OPR ---
DATE OF OPERATION: 07/31/2016 PREOPERATIVE DIAGNOSES: 1. Status post multiple surgeries of the right ankle. 2. Status post infection right ankle fusion with resultant nonunion of the right ankle. POSTOPERATIVE DIAGNOSES 1. Status post multiple surgeries of the right ankle status post infection right ankle fusion with resultant nonunion of the right ankle. OPERATION PERFORMED: 1. Oblique fibular osteotomy, right ankle. 2. Takedown nonunion of the right ankle fusion. 3. Multiple cultures of the bone and soft tissues. 4. Debridement and refusion, right ankle. 5. Debridement and fusion, right subtalar joint. 6. Iliac crest bone graft to the ankle and subtalar fusions. 7. Ground up fibula plus Ignite and augment to the ankle and subtalar fusion sites. 8. Insertion of a Valor 10 x 200 mm intramedullary alice across the subtalar and ankle joint and to t he tibia. 9. Use of fluoroscopy to verify position and alignment of the ankle. IMPLANTS: A #10 short leg splint. Extremely complex and difficult procedure since the patient had had approximately 6 previous ankle s urgeries. There was a significant amount of abnormal anatomy and extensive scarring in the ankle an d subtalar joints. In addition, there was significant overgrowth of bone in the ankle and syndesmos is including the normal architecture of the ankle and subtalar joint. Moreover, the patient was corrie te large with a BMI of 36. All this necessitated an additional 120 minutes of operative time (2200) . SURGEON: Katia Casillas MD TRANSFORMER COIL WINDER: Heber Still. ANESTHESIA: General with popliteal block. TOURNIQUET TIME: 137 minutes. DESCRIPTION OF PROCEDURE: The patient taken to the operating room and placed in supine position. S atisfactory popliteal block was given. Satisfactory general anesthesia was administered, 1 gram of vancomycin was given intravenously. The entire right leg and iliac crest were prepped and draped in the usual manner. Sterile tourniquet was placed on the leg. Our attention was turned first to the iliac crest. Due to the amount of adipose tissue was difficul t to access to the iliac crest. Incision was made over the mid portion. Dissection carried down to subcutaneous tissue. Fascia was opened in line with its fibers. Using a saw, 2 perpendicular cuts were made and 1 longitudinal cut was made. The iliac crest bone was opened up and hinged posterior ly. The patient had a thin iliac crest. Iliac crest bone was obtained with different angled curett es and bone marrow aspirate was obtained with the syringe. When adequate amount of bone had been ob tained, it was saved and placed on the back table. The wounds irrigated with antibiotic solution an d packed with thrombin-soaked Gelfoam and the whole area was covered. All new gloves were used. Right ankle was approached. Incision was made through the previous incis ion along the fibula and dissection carried down to subcutaneous tissue. There was extensive scarri ng throughout the entire ankle area. In addition, the fibula had formed synostosis with the tibia, and it was difficult to determine how much of was fibula and how much was extra bone. Care was take n at all times to avoid injuring the peroneal tendons. The peroneal sheath was left in place. Angeli osteum was opened over the fibula. Using a saw, the medial oblique fibular osteotomy was made with great difficulty freeing up the scar and bone spurs. The fibula was removed in total to be used lat er for bone graft. There was so much bony overgrowth over the ankle and subtalar joint it was very hard to know where we were at. Using fluoroscopy, we found where the ankle was, chipped off and saw ed off enough bone laterally. We could identify where the ankle joint and subtalar joints were. Th is bone was saved for later insertion. There was significant fibrous tissue in the ankle. This was removed and sent for aerobes, anaerobes, fungus, and TB cultures. Multiple cultures were sent. Al l the fibrous tissue was removed in the distal tibia and in the talus. The talus was quite flattene d and shortened. A bur was then used to remove approximately 1 mm of bone until there were good ble eding surfaces on the talus and then on the tibia. Multiple spot welds were placed with the bur in the tibia and the talus. Multiple drill holes were made with 0.045 K-wire. It was difficult to fin d the subtalar joint. We were able to eventually it, distracted it with a distractor, remove all of the articular cartilage from the talus and the calcaneus. A bur was used to remove approximately 1 mm of bone on the talus and calcaneus. Multiple spot welds were made with the bur. Multiple drill holes were made with 0.045 K-wire. The bone was contoured with a bur more laterally to get rid of some of the excess bone. Once the ankle and subtalar joints had been adequately prepared for fusion , the Spongecell intramedullary alice was brought up. The appropriate area for insertion of the alice was identified with the guide pin in the AP and lateral directions. The guide pin was then inserted across calcaneus and then the subtalar joint and ankle was then reduced appropriately and up into the tibia. Once this was done, the compression screw was inserted, a beaded alice was inserte d. Using a flexible reamer, we reamed through the calcaneus, subtalar joint, ankle into the tibia a nd up to 200 mm. [place] that a 10 mm alice was the appropriate size. We overreamed to 10.5. The intra medullary alice was then inserted across the calcaneus subtalar joint and ankle joint into the tibia. It was inserted far enough in so that the internal compression screw was not sticking out. Our 2 s crews proximally were drilled using the guide. It was felt that the desktop support specialist should be removed if we wanted to make the alice more dynamic in the future. Using the targeting guide assembly with the Rivalfoxk trigger positioning system and orientation markings, we were able to position the alice in the natasha ropriate direction and rotation. The 2 screws were then inserted into the tibia to secure the alice. The calcaneal screw was then inserted and the oblique screw was inserted across the subtalar joint. A total of 5 screws were inserted. These were repeatedly checked on AP and lateral radiographs to make sure that the alice was in good position. Excellent fixation was obtained. Good compression wa s obtained across the ankle joint and subtalar joint. The end cap was then screwed in the alice. It should be noted that prior to inserting the alice, we took a bone mill and ground up the fibula, mi xed it with the Ignite and augment. We inserted the iliac crest bone graft into the subtalar joint and ankle and then added a lot of the ground up fibula combination with the Ignite and augment. The alice was then inserted with the bone graft in place. Once the alice was firmly secured, additional josemanuel ne graft was placed throughout the ankle and subtalar joint and lateral aspect of the joint. It manav uld also be noted that prior to inserting the alice, incision was made through the previous old incisi on medially. Dissection was carried down through subcutaneous tissue. All the debris was removed f rom the medial aspect of the ankle. All the arthritic cartilage was removed from the tibia and the talus, and bone graft was passed in this area as well. Once the alice and all the screws were inserte d. Final radiographs were done in AP and lateral plane showed excellent position and alignment of t he alice with compression across the joint and excellent position of the screws. The alice was advanced enough so that there was no sticking out of the alice distal to the calcaneus. The tourniquet was re leased, bleeders were coagulated, wounds were irrigated with antibiotic solution. The deep tissues in the ankle were closed with 0 PDS and 2-0 and 3-0 undyed Vicryl, and then 4-0 black nylon interrup georgiana. The medial wounds were closed with 2-0 and 3-0 undyed Vicryl, and 4-0 black nylon interrupted. The iliac crest was irrigated clear. The thrombin-soaked Gelfoam were removed. The trap door was placed back on the iliac crest and the fascia was closed with a running 0 PDS, subcutaneous tissue was closed with 2-0 and 3-0 undyed Vicryl, and the skin was closed with a running 3-0 subcuticular P rolene. Compression dressing was placed in the iliac crest. Sterile dressings and cast padding wer e placed on the ankle and a posterior splint and a U splint were applied in neutral position. At th e end of procedure, the sponge and needle count was correct. The patient tolerated the procedure we ll and was brought to recovery room. OIL EXPELLER ORTHOPEDIC SURGEON: During the procedure, an front office medical assistant orthopedic surgeon was used at my request. The front office medical assistant helped with stabilizing the leg, obtaining the bone graft, and most importan tly in inserting the alice. I had to stabilize the ankle and subtalar joint while the alice was inserte d initially. Office Nurse helped with inserting the alice and the screws and bone graft. Without a skil led orthopedic surgeon front office medical assistant, it would have been extremely difficult to do therefore should be c overed and compensated appropriately. Dictated By: KATIA CASILLAS MD RF/RIAZ Conf#: [id number] DID#: [id number]
[2016-08-02] MEDS: CEFAZOLIN 1 GM/50 ML (PMX) 50 ML IVPB SCH (01:48)
[2016-08-02] MEDS: OXYCODONE/ACETAMINOPHEN (5/325) TAB PO PRN ×3 (01:49→11:22)
[2016-08-02] MEDS: SOD CHLORIDE 0.9% 1,000 ML IV SCH ×3 (03:36→20:36)
[2016-08-02] MEDS: HYDROmorphONE 0.2 MG/ML PCA IV SCH ×3 (05:11→18:58)
[2016-08-02 05:42] LABS: ADD SCAN DIFF NO
[2016-08-02 06:25] LABS: POTASSIUM 4.5 mmol/L (3.5-5.1)
[2016-08-02 06:28] LABS: CREATININE 1.15 mg/dl (0.61-1.24); PHOSPHORUS 2.6 mg/dl (2.5-4.9)
[2016-08-02 06:29] LABS: CALCIUM 7.5 mg/dl (8.4-10.2); MAGNESIUM 2.1 mg/dl (1.7-2.5)
[2016-08-02 06:37] LABS: BASOPHILS % 0.2 % (0.0-2.0); EOSINOPHILS # 0.1 10^3/ul (0.0-0.5); EOSINOPHILS % 1.2 % (0.0-7.0); HEMATOCRIT 24.1 % (42.0-52.0); HEMOGLOBIN 7.3 g/dl (14.0-18.0); LYMPHOCYTES # 1.4 10^3/ul (0.8-2.9); LYMPHOCYTES % 15.3 % (15.0-51.0); MEAN CORPUSCULAR HEMOGLOBIN 25.4 pg (29.0-33.0); MEAN CORPUSCULAR HGB CONC 30.3 g/dl (32.0-37.0); MEAN PLATELET VOLUME 11.1 fl (7.4-10.4); MONOCYTE # 0.7 10^3/ul (0.3-0.9); MONOCYTES % 7.3 % (0.0-11.0); NEUTROPHIL # 6.7 10^3/ul (1.6-7.5); NEUTROPHILS % 75.3 % (39.0-77.0); PLATELET COUNT 110 10^3/UL (140-415); RED BLOOD COUNT 2.87 10^6/ul (4.70-6.10); WHITE BLOOD COUNT 8.9 10^3/ul (4.8-10.8)
--- NOTE | 2016-08-02 06:52 | PN ---
Date/Time of Note Date/Time of Note DATE: 08/02/16 TIME: 06:49 Assessment/Plan VTE Prophylaxis VTE Prophylaxis Intervention: ambulation, SCD's Lines/Catheters IV Catheter Type (from Nrsg): Peripheral IV Urinary Cath still in place: Yes Reason Cath still needed: urinary retention Assessment/Plan Assessment/Plan 71 y/o diabetic male with a h/o infected ankle nonunion who has since cleared the infection and is now POD 2 s/p ankle and subtalar arthrodesis - Continue IV vantibiotics per Dr Abarca recommendations - follow-up cultures - non-weight bearing right lower extremity - elevation - mobilize with PT today - DC cordova catheter today - pain control with [employer] CL[employer], transition to oral medications as tolerated - SCD/xarelto for DVT ppx Subjective 24 Hr Interval Summary Free Text/Dictation Pt reports an increase in pain after his block wore off. He worked with PT but did not mobilize very much. He denies nausea or emesis. Noo chest pain or shortness of breath Exam/Review of Systems Vital Signs Vitals Vital Signs Date Time Temp Pulse Resp B/P Pulse Ox O2 Delivery O2 Flow Rate FiO2 08/02/16 05:18 18 08/01/16 20:55 98.2 60 110/56 98 08/01/16 11:51 Nasal Cannula 2.0 Intake and Output 08/01/16 08/01/16 08/02/16 15:00 23:00 07:00 Intake Total 700 ml 1385 ml 2000 ml Output Total 750 ml 800 ml Balance 700 ml 635 ml 1200 ml Exam RLE: splint is in place, clean, dry and intact extremity is elevated + toe flexion and extension Decreased sensation on dorsum of big toe, otherwise sensation is intact to light touch CR < 2 sec throughout SCD is on contralateral extremity Results Result Diagram: 08/02/16 0625 08/02/16 0507 Results 24 hrs Laboratory Tests Test 08/01/16 08:31 08/01/16 12:00 08/01/16 12:20 08/01/16 14:00 Bedside Glucose 255 H 267 H Urine Color LT. YELLOW Urine Clarity CLEAR Urine pH 5.0 Urine Specific [place] 1.025 Urine Ketones NEGATIVE Urine Nitrite NEGATIVE Urine Bilirubin NEGATIVE Urine Urobilinogen 0.2 E.U./dL Urine Leukocyte Esterase NEGATIVE Urine Microscopic RBC 10-25 Urine Microscopic WBC 2-5 Urine Transitional Epithelial Cells FEW Urine Bacteria FEW Urine Hemoglobin 1+ H Urine Random Sodium 26 L Urine Glucose NEGATIVE Urine Total Protein NEGATIVE Potassium Level 4.3 Test 08/01/16 16:05 08/01/16 18:04 08/01/16 20:53 08/02/16 05:07 White Blood Count 11.2 #H Red Blood Count 3.17 L Hemoglobin 8.1 L Hematocrit 26.5 L Mean Corpuscular Volume 83.6 Mean Corpuscular Hemoglobin 25.6 L Mean Corpuscular Hemoglobin Concent 30.6 L Red Cell Distribution Width 14.0 Platelet Count 136 #L Mean Platelet Volume 11.1 H Neutrophils % 75.1 Lymphocytes % 15.0 Monocytes % 8.6 Eosinophils % 0.7 Basophils % 0.2 Nucleated Red Blood Cells % 0.0 Neutrophils # 8.4 H Lymphocytes # 1.7 Monocytes # 1.0 H Eosinophils # 0.1 Basophils # 0.0 Nucleated Red Blood Cells # 0.0 Bedside Glucose 227 H 237 H Sodium Level 132 L Potassium Level 4.5 Chloride Level 99 Carbon Dioxide Level 24 Anion Gap 14 Blood Urea Nitrogen 27 #H Creatinine 1.15 Glucose Level 229 H Calcium Level 7.5 L Phosphorus Level 2.6 # Magnesium Level 2.1 Random Vancomycin Level 14.9 Test 08/02/16 06:25 White Blood Count 8.9 # Red Blood Count 2.87 L Hemoglobin 7.3 L Hematocrit 24.1 L Mean Corpuscular Volume 84.0 Mean Corpuscular Hemoglobin 25.4 L Mean Corpuscular Hemoglobin Concent 30.3 L Red Cell Distribution Width 14.0 Platelet Count 110 L Mean Platelet Volume 11.1 H Neutrophils % 75.3 Lymphocytes % 15.3 Monocytes % 7.3 Eosinophils % 1.2 Basophils % 0.2 Nucleated Red Blood Cells % 0.0 Neutrophils # 6.7 Lymphocytes # 1.4 Monocytes # 0.7 Eosinophils # 0.1 Basophils # 0.0 Nucleated Red Blood Cells # 0.0 Medications Medications Current Medications Senna/Docusate Sodium (Senokot-S) 1 tab BID PO Last administered on 08/01/16t 20 :59; Admin Dose 1 TAB; Start 07/31/16 at 09:00 Magnesium Hydroxide (Milk Of Mag) 30 ml HS PO ; Start 08/02/16 at 21:00 Bisacodyl 10 mg [address] CONSTIPATION; Start 07/31/16 at 07:30 Sodium Chloride (NS) 1,000 ml @ 125 mls/hr Q8H IV Last administered on 03:36; Admin Dose 125 MLS/HR; Start 07/31/16 at 09:00 Oxycodone/ Acetaminophen (Percocet (5/ 325)) 2 tab Q4H PRN PO PAIN Last administered on 08/02/16 01:49; Admin Dose 2 TAB; Start 07/31/16 at 07:30 Morphine Sulfate (morphine) 5 mg Q4H PRN IV PAIN LEVEL 7-10; Start 07/31/16 at 07:30 Ondansetron HCl (Zofran Inj) 4 mg Q4H PRN IV NAUSEA AND/OR VOMITING; Start 07/31 at 07:30 Diphenhydramine HCl (Benadryl) 25 mg Q4H PRN PO ITCHING; Start 07/31/16 at 07:30 Hydromorphone HCl MG/HR CONTINUOUS RATE ... Q4PCA IV Last administered on 05:11; Admin Dose 6 MG; Start 07/31/16 at 07:30 Vancomycin HCl/ Sodium Chloride (Vancocin/NS) 250 ml @ 83.333 mls/ hr Q12H IVPB Last administered on 08/01/16 05:47; Admin Dose 83.333 MLS/HR; Start at 18:00; Status Future Hold Carvedilol (Coreg) 3.125 mg BID PO ; Start 07/31/16 at 21:00 Duloxetine HCl (Cymbalta) 60 mg BID PO Last administered on 08/01/16 20:58; Admin Dose 60 MG; Start 07/31/16 at 21:00 Insulin Glargine (Lantus) 8 unit HS SC Last administered on 08/01/16 21:00; Admin Dose 8 UNIT; Start 07/31/16 at 21:00 Magnesium Oxide (Mag-Ox 400) 400 mg BID PO Last administered on 08/01/16 20:59 ; Admin Dose 400 MG; Start 07/31/16 at 21:00 Pioglitazone HCl (Actos) 30 mg DAILY PO Last administered on 08/01/16 09:02; Admin Dose 30 MG; Start 08/01/16 at 09:00 Miscellaneous Information 1 ea NOTE XX ; Start 07/31/16 at 17:30 Glucose (Glutose) 15 gm Q15M PRN PO DECREASED GLUCOSE; Start 07/31/16 at 17:30 Glucose (Glutose) 22.5 gm Q15M PRN PO DECREASED GLUCOSE; Start 07/31/16 at 17:30 Dextrose (D50w Syringe) 25 ml Q15M PRN IV DECREASED GLUCOSE; Start 07/31/16 at 17:30 Dextrose (D50w Syringe) 50 ml Q15M PRN IV DECREASED GLUCOSE; Start 07/31/16 at 17:30 Glucagon (Glucagen) 1 mg Q15M PRN IM DECREASED GLUCOSE; Start 07/31/16 at 17:30 Glucose (Glutose) 15 gm Q15M PRN BUCCAL DECREASED GLUCOSE; Start 07/31/16 at 17: 30 Tamsulosin HCl (Flomax) 0.8 mg HS PO Last administered on 08/01/16t 20:59; Admin Dose 0.8 MG; Start 08/01/16 at 21:00 Miscellaneous Information (* Miscellaneous Pharmacy Order) pt has acute renal failure---ple... ONCE XX ; Start 08/01/16 at 09:00 Vancomycin HCl (Vanco Iv Per Pharmacy) PER PHARMACY DOSING NOTE XX ; Start at 10:30 KATIA CASILLAS MD Aug 02, 2016 06:52
--- NOTE | 2016-08-02 08:45 | CONS ---
Date/Time of Note Date/Time of Note DATE: 08/02/16 TIME: 08:43 Assessment/Plan Assessment/Plan Additional Assessment/Plan 1. S/P right foot surg, stable 2. Acute renal failure, stable 3. Inc anemia, will repeat and trasfuse if of with ortho 4. BP contolled Consultation Date/Type/Reason Admit Date/Time Jul 31, 2016 at 05:18 Detailed Summary Respiratory: No cough, No shortness of breath Cardiovascular: No chest pain Gastrointestinal: no complaints Genitourinary: no complaints Musculoskeletal: bone/joint pain (mod foot pain) Exam/Review of Systems Vital Signs Vitals Vital Signs Date Time Temp Pulse Resp B/P Pulse Ox O2 Delivery O2 Flow Rate FiO2 08/02/16 05:18 18 08/01/16 20:55 98.2 60 110/56 98 08/01/16 11:51 Nasal Cannula 2.0 Intake and Output 08/01/16 08/01/16 08/02/16 15:00 23:00 07:00 Intake Total 700 ml 1385 ml 2000 ml Output Total 750 ml 800 ml Balance 700 ml 635 ml 1200 ml Exam Neck: No jvd Respiratory: clear to auscultation Cardiovascular: regular rate and rhythm Gastrointestinal: soft Extremities: No edema (adn no calf tend) Results Result Diagram: 08/02/16 0625 08/02/16 0507 Results 24 hrs Laboratory Tests Test 08/01/16 12:00 08/01/16 12:20 08/01/16 14:00 08/01/16 16:05 Urine Color LT. YELLOW Urine Clarity CLEAR Urine pH 5.0 Urine Specific [place] 1.025 Urine Ketones NEGATIVE Urine Nitrite NEGATIVE Urine Bilirubin NEGATIVE Urine Urobilinogen 0.2 E.U./dL Urine Leukocyte Esterase NEGATIVE Urine Microscopic RBC 10-25 Urine Microscopic WBC 2-5 Urine Transitional Epithelial Cells FEW Urine Bacteria FEW Urine Hemoglobin 1+ H Urine Random Sodium 26 L Urine Glucose NEGATIVE Urine Total Protein NEGATIVE Bedside Glucose 267 H Potassium Level 4.3 White Blood Count 11.2 #H Red Blood Count 3.17 L Hemoglobin 8.1 L Hematocrit 26.5 L Mean Corpuscular Volume 83.6 Mean Corpuscular Hemoglobin 25.6 L Mean Corpuscular Hemoglobin Concent 30.6 L Red Cell Distribution Width 14.0 Platelet Count 136 #L Mean Platelet Volume 11.1 H Neutrophils % 75.1 Lymphocytes % 15.0 Monocytes % 8.6 Eosinophils % 0.7 Basophils % 0.2 Nucleated Red Blood Cells % 0.0 Neutrophils # 8.4 H Lymphocytes # 1.7 Monocytes # 1.0 H Eosinophils # 0.1 Basophils # 0.0 Nucleated Red Blood Cells # 0.0 Test 08/01/16 18:04 08/01/16 20:53 08/02/16 05:07 08/02/16 06:25 Bedside Glucose 227 H 237 H Sodium Level 132 L Potassium Level 4.5 Chloride Level 99 Carbon Dioxide Level 24 Anion Gap 14 Blood Urea Nitrogen 27 #H Creatinine 1.15 Glucose Level 229 H Calcium Level 7.5 L Phosphorus Level 2.6 # Magnesium Level 2.1 Random Vancomycin Level 14.9 White Blood Count 8.9 # Red Blood Count 2.87 L Hemoglobin 7.3 L Hematocrit 24.1 L Mean Corpuscular Volume 84.0 Mean Corpuscular Hemoglobin 25.4 L Mean Corpuscular Hemoglobin Concent 30.3 L Red Cell Distribution Width 14.0 Platelet Count 110 L Mean Platelet Volume 11.1 H Neutrophils % 75.3 Lymphocytes % 15.3 Monocytes % 7.3 Eosinophils % 1.2 Basophils % 0.2 Nucleated Red Blood Cells % 0.0 Neutrophils # 6.7 Lymphocytes # 1.4 Monocytes # 0.7 Eosinophils # 0.1 Basophils # 0.0 Nucleated Red Blood Cells # 0.0 Medications Medications Current Medications Senna/Docusate Sodium (Senokot-S) 1 tab BID PO Last administered on 08/01/16 20 :59; Admin Dose 1 TAB; Start 07/31/16 at 09:00 Magnesium Hydroxide (Milk Of Mag) 30 ml HS PO ; Start 08/02/16 at 21:00 Bisacodyl 10 mg 10 mg DAILY PRN [place] CONSTIPATION; Start 07/31/16 at 07:30 Sodium Chloride (NS) 1,000 ml @ 125 mls/hr Q8H IV Last administered on 03:36; Admin Dose 125 MLS/HR; Start 07/31/16 at 09:00 Oxycodone/ Acetaminophen (Percocet (5/ 325)) 2 tab Q4H PRN PO PAIN Last administered on 08/02/16 06:53; Admin Dose 2 TAB; Start 07/31/16 at 07:30 Morphine Sulfate (morphine) 5 mg Q4H PRN IV PAIN LEVEL 7-10; Start 07/31/16 at 07:30 Ondansetron HCl (Zofran Inj) 4 mg Q4H PRN IV NAUSEA AND/OR VOMITING; Start 07/31 at 07:30 Diphenhydramine HCl (Benadryl) 25 mg Q4H PRN PO ITCHING; Start 07/31/16 at 07:30 Hydromorphone HCl MG/HR CONTINUOUS RATE ... Q4PCA IV Last administered on 05:11; Admin Dose 6 MG; Start 07/31/16 at 07:30 Vancomycin HCl/ Sodium Chloride (Vancocin/NS) 250 ml @ 83.333 mls/ hr Q12H IVPB Last administered on 08/01/16 05:47; Admin Dose 83.333 MLS/HR; Start at 18:00; Status Future Hold Carvedilol (Coreg) 3.125 mg BID PO ; Start 07/31/16 at 21:00 Duloxetine HCl (Cymbalta) 60 mg BID PO Last administered on 08/01/16 20:58; Admin Dose 60 MG; Start 07/31/16 at 21:00 Insulin Glargine (Lantus) 8 unit HS SC Last administered on 08/01/16 21:00; Admin Dose 8 UNIT; Start 07/31/16 at 21:00 Magnesium Oxide (Mag-Ox 400) 400 mg BID PO Last administered on 08/01/16 20:59 ; Admin Dose 400 MG; Start 07/31/16 at 21:00 Pioglitazone HCl (Actos) 30 mg DAILY PO Last administered on 08/01/16 09:02; Admin Dose 30 MG; Start 08/01/16 at 09:00 Miscellaneous Information 1 ea NOTE XX ; Start 07/31/16 at 17:30 Glucose (Glutose) 15 gm Q15M PRN PO DECREASED GLUCOSE; Start 07/31/16 at 17:30 Glucose (Glutose) 22.5 gm Q15M PRN PO DECREASED GLUCOSE; Start 07/31/16 at 17:30 Dextrose (D50w Syringe) 25 ml Q15M PRN IV DECREASED GLUCOSE; Start 07/31/16 at 17:30 Dextrose (D50w Syringe) 50 ml Q15M PRN IV DECREASED GLUCOSE; Start 07/31/16 at 17:30 Glucagon (Glucagen) 1 mg Q15M PRN IM DECREASED GLUCOSE; Start 07/31/16 at 17:30 Glucose (Glutose) 15 gm Q15M PRN BUCCAL DECREASED GLUCOSE; Start 07/31/16 at 17: 30 Tamsulosin HCl (Flomax) 0.8 mg HS PO Last administered on 08/01/16t 20:59; Admin Dose 0.8 MG; Start 08/01/16 at 21:00 Miscellaneous Information (* Miscellaneous Pharmacy Order) pt has acute renal failure---ple... ONCE XX ; Start 08/01/16 at 09:00 Vancomycin HCl (Vanco Iv Per Pharmacy) PER PHARMACY DOSING NOTE XX ; Start at 10:30 OTILIA MENDEZ MD Aug 02, 2016 08:45
[2016-08-02 08:47] VITALS: BP 128/84; RESP 20
[2016-08-02] MEDS: DULOXETINE 30 MG CAP DR PO SCH ×2 (08:52→20:21)
[2016-08-02] MEDS: MAGNESIUM OXIDE 400 MG TAB PO SCH ×2 (08:53→20:20)
[2016-08-02] MEDS: SENNA/DOCUSATE NA (8.6MG/50MG) TAB PO SCH ×2 (08:53→20:21)
[2016-08-02] MEDS: PIOGLITAZONE 30 MG TAB PO SCH (08:53)
[2016-08-02] MEDS: INSULIN ASPART [NOVOLOG] 3 ML PEN SC SCH ×3 (08:57→18:00)
[2016-08-02] MEDS ORDERED: metFORMIN 500 MG TAB PO ONE (12:00)
[2016-08-02 13:34] LABS: ADD SCAN DIFF NO
[2016-08-02 14:20] LABS: BASOPHILS % 0.2 % (0.0-2.0); EOSINOPHILS # 0.1 10^3/ul (0.0-0.5); EOSINOPHILS % 1.1 % (0.0-7.0); HEMOGLOBIN 7.2 g/dl (14.0-18.0); LYMPHOCYTES # 1.1 10^3/ul (0.8-2.9); LYMPHOCYTES % 12.2 % (15.0-51.0); MEAN CORPUSCULAR HGB CONC 31.3 g/dl (32.0-37.0); MEAN PLATELET VOLUME 11.2 fl (7.4-10.4); MONOCYTE # 0.6 10^3/ul (0.3-0.9); MONOCYTES % 6.4 % (0.0-11.0); NEUTROPHILS % 79.6 % (39.0-77.0); PLATELET COUNT 115 10^3/UL (140-415); RED BLOOD COUNT 2.77 10^6/ul (4.70-6.10); RED CELL DISTRIBUTION WIDTH 13.8 % (11.5-14.5); WHITE BLOOD COUNT 8.9 10^3/ul (4.8-10.8)
[2016-08-02] MEDS: VANCOMYCIN 1.25 GM in SOD CHLORIDE 0.9% 250 ML IVPB SCH (15:12)
--- NOTE | 2016-08-02 15:32 | PN ---
DATE: 08/02/2016 SUBJECTIVE: No acute changes. The patient is awake. Complaining of being not able to urinate since this a.m. after Calderon discontinued. He is in no distress , looks comfortable. Family at bedside. No fevers. LABORATORY: WBC 8.9, H and H 7.2 and 23, platelets 115, neutrophils 79.6, no bands. BUN 27, creatinine 1.15. MICROBIOLOGY: Cultures have been negative. ANTIMICROBIALS: Vancomycin. PHYSICAL EXAMINATION: GENERAL: Well-developed elderly man who is alert, in no distress. HEENT: Head atraumatic, normocephalic. Sclerae anicteric. Buccal mucosa pink. NECK: Supple. CHEST: Rise symmetrical. Breath sounds clear. HEART: S1, S2. ABDOMEN: Soft, bowel tones present. EXTREMITIES: Without cyanosis. ASSESSMENT: 1. Status post right ankle surgery, postop day #2. 2. 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 3. Urinary retention. 4. Diabetes. PLAN: The patient remains stable. Intraoperative cultures negative. He does have significant urinary retention and will require straight catheterization. He may need to be started on Flomax until he regains function of his bladder. As per discussion with Dr. Vicente we will proceed with a PICC line and anticipate discharge him home on IV vancomycin for at least another 2 weeks. Dictated By: YESSI WREN LIAISON INSPECTION LABORATORY ASSISTANT for [employer] Conf#: [id number] DID#: [id number] MTDD
[2016-08-02] MEDS ORDERED: LIDOCAINE 1% (MDV) 20 ML INJ SC ONE (16:00)
[2016-08-02] MEDS: metFORMIN 500 MG TAB PO SCH (17:49)
[2016-08-02] MEDS: RIVAROXABAN 10 MG TABLET PO SCH (17:49)
[2016-08-02] MEDS: TAMSULOSIN (SR) 0.4 MG CAP PO SCH (20:20)
[2016-08-02] MEDS: INSULIN GLARGINE [LANtus] 3 ML PEN SC SCH (20:30)
[2016-08-02] MEDS ORDERED: TAMSULOSIN (SR) 0.4 MG CAP PO SCH (21:00)
[2016-08-02] MEDS ORDERED: MAGNESIUM HYDROXIDE 30ML CUP PO SCH (21:00)
[2016-08-02 21:06] VITALS: BP 108/61; RESP 20
[2016-08-02 21:30] VITALS: BP 120/63; PULSE 91; RESP 20
[2016-08-02 21:45] VITALS: BP 124/62; PULSE 90; RESP 19
[2016-08-02 22:15] VITALS: BP 118/60; PULSE 89; RESP 19
[2016-08-02 23:00] VITALS: BP 123/69; PULSE 87; RESP 18
[2016-08-03] VITALS (9 sets, daily range): BP systolic 119–136; BP diastolic 60–84; PULSE 74–84; RESP 17–20
[2016-08-03] MEDS: VANCOMYCIN 1.25 GM in SOD CHLORIDE 0.9% 250 ML IVPB SCH (01:48)
[2016-08-03] MEDS: HYDROmorphONE 0.2 MG/ML PCA IV SCH ×2 (04:40→17:31)
[2016-08-03] MEDS: OXYCODONE/ACETAMINOPHEN (5/325) TAB PO PRN ×4 (04:46→17:39)
[2016-08-03] MEDS: SOD CHLORIDE 0.9% 1,000 ML IV SCH (05:15)
--- NOTE | 2016-08-03 07:08 | PN ---
Date/Time of Note Date/Time of Note DATE: 08/03/16 TIME: 07:04 Assessment/Plan VTE Prophylaxis VTE Prophylaxis Intervention: ambulation, SCD's Lines/Catheters IV Catheter Type (from Nrsg): Saline Lock Urinary Cath still in place: No Assessment/Plan Assessment/Plan 71 y/o diabetic male with a h/o infected ankle nonunion who has since cleared the infection and is now POD 3 s/p ankle and subtalar arthrodesis - Continue IV vantibiotics per Dr Abarca recommendations - PICC line placement today for home IV vancomycin - follow-up cultures - non-weight bearing right lower extremity - elevation - PT - pain control with oral medications - now s/p blood transfusion for acute post-operative anemia, will follow-up AM Hgb - ARF is stable, appreciate medicine recs - SCD/xarelto for DVT ppx Subjective 24 Hr Interval Summary Free Text/Dictation Pt reports that his pain is now well controlled. He ambulated yesterday with PT after his cordova was removed in the morning. he received a blood transfusion overnight. He denies SOB or CP Exam/Review of Systems Vital Signs Vitals Vital Signs Date Time Temp Pulse Resp B/P Pulse Ox O2 Delivery O2 Flow Rate FiO2 08/03/16 05:15 98.2 82 18 131/61 97 Nasal Cannula 2.0 Intake and Output 08/02/16 08/02/16 08/03/16 15:00 23:00 07:00 Intake Total 875 ml 1300 ml 1190 ml Output Total 930 ml 1250 ml Balance 875 ml 370 ml -60 ml Exam RLE: elevated on pillow Splint is in place + toe flexion and extension Decreased sensation on dorsum of big toe, otherwise sensation intact to light touch CR < 2 sec throughout toe tips SCD on contralateral leg Results Result Diagram: 08/02/16 1325 08/02/16 0507 Results 24 hrs Laboratory Tests Test 08/02/16 08:49 08/02/16 13:06 08/02/16 13:25 08/02/16 17:55 Bedside Glucose 247 H 299 H 263 H White Blood Count 8.9 Red Blood Count 2.77 L Hemoglobin 7.2 L Hematocrit 23.0 L Mean Corpuscular Volume 83.0 Mean Corpuscular Hemoglobin 26.0 L Mean Corpuscular Hemoglobin Concent 31.3 L Red Cell Distribution Width 13.8 Platelet Count 115 L Mean Platelet Volume 11.2 H Neutrophils % 79.6 H Lymphocytes % 12.2 L Monocytes % 6.4 Eosinophils % 1.1 Basophils % 0.2 Nucleated Red Blood Cells % 0.0 Neutrophils # 7.0 Lymphocytes # 1.1 Monocytes # 0.6 Eosinophils # 0.1 Basophils # 0.0 Nucleated Red Blood Cells # 0.0 Test 08/02/16 20:25 Bedside Glucose 284 H Medications Medications Current Medications Senna/Docusate Sodium (Senokot-S) 1 tab BID PO Last administered on 08/02/16 20 :21; Admin Dose 1 TAB; Start 07/31/16 at 09:00 Magnesium Hydroxide (Milk Of Mag) 30 ml HS PO Last administered on 08/02/16 20: 21; Admin Dose 30 ML; Start 08/02/16 at 21:00 Bisacodyl 10 mg 10 mg DAILY PRN [place] CONSTIPATION; Start 07/31/16 at 07:30 Sodium Chloride (NS) 1,000 ml @ 50 mls/hr Q20H IV Last administered on 05:15; Admin Dose 50 MLS/HR; Start 07/31/16 at 09:00 Oxycodone/ Acetaminophen (Percocet (5/ 325)) 2 tab Q4H PRN PO PAIN Last administered on 08/03/16 04:46; Admin Dose 2 TAB; Start 07/31/16 at 07:30 Morphine Sulfate (morphine) 5 mg Q4H PRN IV PAIN LEVEL 7-10; Start 07/31/16 at 07:30 Ondansetron HCl (Zofran Inj) 4 mg Q4H PRN IV NAUSEA AND/OR VOMITING; Start 07/31 at 07:30 Diphenhydramine HCl (Benadryl) 25 mg Q4H PRN PO ITCHING; Start 07/31/16 at 07:30 Hydromorphone HCl (Dilaudid TRACTOR SWEEPER OPERATOR) MG/HR CONTINUOUS RATE ... Q4PCA IV Last administered on 08/03/16 04:40; Admin Dose 6 MG; Start 07/31/16 at 07:30 Carvedilol (Coreg) 3.125 mg BID PO Last administered on 08/02/16 08:53; Admin Dose 3.125 MG; Start 07/31/16 at 21:00 Duloxetine HCl (Cymbalta) 60 mg BID PO Last administered on 08/02/16 20:21; Admin Dose 60 MG; Start 07/31/16 at 21:00 Insulin Glargine (Lantus) 8 unit HS SC Last administered on 08/02/16 20:30; Admin Dose 8 UNIT; Start 07/31/16 at 21:00 Magnesium Oxide (Mag-Ox 400) 400 mg BID PO Last administered on 08/02/16 20:20 ; Admin Dose 400 MG; Start 07/31/16 at 21:00 Pioglitazone HCl (Actos) 30 mg DAILY PO Last administered on 08/02/16 08:53; Admin Dose 30 MG; Start 08/01/16 at 09:00 Miscellaneous Information 1 ea NOTE XX ; Start 07/31/16 at 17:30 Glucose (Glutose) 15 gm Q15M PRN PO DECREASED GLUCOSE; Start 07/31/16 at 17:30 Glucose (Glutose) 22.5 gm Q15M PRN PO DECREASED GLUCOSE; Start 07/31/16 at 17:30 Dextrose (D50w Syringe) 25 ml Q15M PRN IV DECREASED GLUCOSE; Start 07/31/16 at 17:30 Dextrose (D50w Syringe) 50 ml Q15M PRN IV DECREASED GLUCOSE; Start 07/31/16 at 17:30 Glucagon (Glucagen) 1 mg Q15M PRN IM DECREASED GLUCOSE; Start 07/31/16 at 17:30 Glucose (Glutose) 15 gm Q15M PRN BUCCAL DECREASED GLUCOSE; Start 07/31/16 at 17: 30 Tamsulosin HCl (Flomax) 0.8 mg HS PO Last administered on 08/02/16 20:20; Admin Dose 0.8 MG; Start 08/01/16 at 21:00 Miscellaneous Information (* Miscellaneous Pharmacy Order) pt has acute renal failure---ple... ONCE XX ; Start 08/01/16 at 09:00 Vancomycin HCl PER PHARMACY DOSING NOTE XX ; Start 08/01/16 at 10:30 Vancomycin HCl/ Sodium Chloride (Vancocin/NS) 250 ml @ 83.333 mls/ hr Q12H IVPB Last administered on 08/03/16 01:48; Admin Dose 83.333 MLS/HR; Start at 14:00 KATIA CASILLAS MD Aug 03, 2016 07:08
[2016-08-03] MEDS: SENNA/DOCUSATE NA (8.6MG/50MG) TAB PO SCH (09:22)
[2016-08-03] MEDS: PIOGLITAZONE 30 MG TAB PO SCH (09:22)
[2016-08-03] MEDS: metFORMIN 500 MG TAB PO SCH ×2 (09:23→17:39)
[2016-08-03] MEDS: DULOXETINE 30 MG CAP DR PO SCH (09:23)
[2016-08-03] MEDS: MAGNESIUM OXIDE 400 MG TAB PO SCH (09:23)
[2016-08-03 09:27] LABS: ADD SCAN DIFF NO
[2016-08-03] MEDS: INSULIN ASPART [NOVOLOG] 3 ML PEN SC SCH ×3 (09:29→17:49)
[2016-08-03 09:30] LABS: BASOPHILS % 0.2 % (0.0-2.0); EOSINOPHILS # 0.2 10^3/ul (0.0-0.5); EOSINOPHILS % 1.9 % (0.0-7.0); HEMATOCRIT 27.4 % (42.0-52.0); HEMOGLOBIN 8.7 g/dl (14.0-18.0); LYMPHOCYTES # 0.9 10^3/ul (0.8-2.9); LYMPHOCYTES % 11.6 % (15.0-51.0); MEAN CORPUSCULAR HEMOGLOBIN 26.8 pg (29.0-33.0); MEAN CORPUSCULAR HGB CONC 31.8 g/dl (32.0-37.0); MEAN CORPUSCULAR VOLUME 84.3 fl (82.0-101.0); MEAN PLATELET VOLUME 11.1 fl (7.4-10.4); MONOCYTE # 0.5 10^3/ul (0.3-0.9); MONOCYTES % 6.7 % (0.0-11.0); NEUTROPHIL # 6.4 10^3/ul (1.6-7.5); PLATELET COUNT 105 10^3/UL (140-415); RED BLOOD COUNT 3.25 10^6/ul (4.70-6.10); RED CELL DISTRIBUTION WIDTH 14.1 % (11.5-14.5)
[2016-08-03 10:09] LABS: CALCIUM 8.2 mg/dl (8.4-10.2); CREATININE 0.93 mg/dl (0.61-1.24); MAGNESIUM 1.8 mg/dl (1.7-2.5); POTASSIUM 4.2 mmol/L (3.5-5.1)
--- NOTE | 2016-08-03 12:28 | CONS ---
Date/Time of Note Date/Time of Note DATE: 08/03/16 TIME: 12:26 Assessment/Plan Assessment/Plan Additional Assessment/Plan 1. S/P right foot surg, stable 2. Hct inc after 2 u cells, iron studies ordered tomm 3. Renal fx is stable. 4. CHO is inc will inc metformin and lantus 5. P is low, will repelete and give additional Mag Consultation Date/Type/Reason Admit Date/Time Jul 31, 2016 at 05:18 Detailed Summary Respiratory: No shortness of breath Cardiovascular: No chest pain Gastrointestinal: no complaints Genitourinary: no complaints Musculoskeletal: bone/joint pain (mild right foot pain) Exam/Review of Systems Vital Signs Vitals Vital Signs Date Time Temp Pulse Resp B/P Pulse Ox O2 Delivery O2 Flow Rate FiO2 08/03/16 09:01 97.4 75 20 136/84 98 08/03/16 05:15 Nasal Cannula 2.0 Intake and Output 08/02/16 08/02/16 08/03/16 15:00 23:00 07:00 Intake Total 875 ml 1300 ml 1190 ml Output Total 930 ml 1250 ml Balance 875 ml 370 ml -60 ml Exam Neck: No jvd Respiratory: clear to auscultation Cardiovascular: regular rate and rhythm Gastrointestinal: soft Extremities: No edema (left foot, right in cast) Results Result Diagram: 08/03/16 0854 08/03/16 0854 Results 24 hrs Laboratory Tests Test 08/02/16 13:06 08/02/16 13:25 08/02/16 17:55 08/02/16 20:25 Bedside Glucose 299 H 263 H 284 H White Blood Count 8.9 Red Blood Count 2.77 L Hemoglobin 7.2 L Hematocrit 23.0 L Mean Corpuscular Volume 83.0 Mean Corpuscular Hemoglobin 26.0 L Mean Corpuscular Hemoglobin Concent 31.3 L Red Cell Distribution Width 13.8 Platelet Count 115 L Mean Platelet Volume 11.2 H Neutrophils % 79.6 H Lymphocytes % 12.2 L Monocytes % 6.4 Eosinophils % 1.1 Basophils % 0.2 Nucleated Red Blood Cells % 0.0 Neutrophils # 7.0 Lymphocytes # 1.1 Monocytes # 0.6 Eosinophils # 0.1 Basophils # 0.0 Nucleated Red Blood Cells # 0.0 Test 08/03/16 08:12 08/03/16 08:54 Bedside Glucose 248 H White Blood Count 8.0 Red Blood Count 3.25 L Hemoglobin 8.7 #L Hematocrit 27.4 L Mean Corpuscular Volume 84.3 Mean Corpuscular Hemoglobin 26.8 L Mean Corpuscular Hemoglobin Concent 31.8 L Red Cell Distribution Width 14.1 Platelet Count 105 L Mean Platelet Volume 11.1 H Neutrophils % 79.0 H Lymphocytes % 11.6 L Monocytes % 6.7 Eosinophils % 1.9 Basophils % 0.2 Nucleated Red Blood Cells % 0.0 Neutrophils # 6.4 Lymphocytes # 0.9 Monocytes # 0.5 Eosinophils # 0.2 Basophils # 0.0 Nucleated Red Blood Cells # 0.0 Sodium Level 130 L Potassium Level 4.2 Chloride Level 95 L Carbon Dioxide Level 29 Anion Gap 10 Blood Urea Nitrogen 15 # Creatinine 0.93 Glucose Level 247 H Calcium Level 8.2 L Phosphorus Level 2.0 L Magnesium Level 1.8 Medications Medications Current Medications Senna/Docusate Sodium (Senokot-S) 1 tab BID PO Last administered on 08/03/16 09 :22; Admin Dose 1 TAB; Start 07/31/16 at 09:00 Magnesium Hydroxide (Milk Of Mag) 30 ml HS PO Last administered on 08/02/16 20: 21; Admin Dose 30 ML; Start 08/02/16 at 21:00 Bisacodyl 10 mg 10 mg DAILY PRN [place] CONSTIPATION; Start 07/31/16 at 07:30 Sodium Chloride (NS) 1,000 ml @ 50 mls/hr Q20H IV Last administered on 05:15; Admin Dose 50 MLS/HR; Start 07/31/16 at 09:00 Oxycodone/ Acetaminophen (Percocet (5/ 325)) 2 tab Q4H PRN PO PAIN Last administered on 08/03/16 09:22; Admin Dose 2 TAB; Start 07/31/16 at 07:30 Morphine Sulfate (morphine) 5 mg Q4H PRN IV PAIN LEVEL 7-10; Start 07/31/16 at 07:30 Ondansetron HCl (Zofran Inj) 4 mg Q4H PRN IV NAUSEA AND/OR VOMITING; Start 07/31 at 07:30 Diphenhydramine HCl (Benadryl) 25 mg Q4H PRN PO ITCHING; Start 07/31/16 at 07:30 Hydromorphone HCl (Dilaudid SOFTWARE ENGINEERING ASSOCIATE MANAGER) MG/HR CONTINUOUS RATE ... Q4PCA IV Last administered on 08/03/16 04:40; Admin Dose 6 MG; Start 07/31/16 at 07:30 Carvedilol (Coreg) 3.125 mg BID PO Last administered on 08/03/16 09:24; Admin Dose 3.125 MG; Start 07/31/16 at 21:00 Duloxetine HCl (Cymbalta) 60 mg BID PO Last administered on 08/03/16 09:23; Admin Dose 60 MG; Start 07/31/16 at 21:00 Insulin Glargine (Lantus) 8 unit HS SC Last administered on 08/02/16 20:30; Admin Dose 8 UNIT; Start 07/31/16 at 21:00 Magnesium Oxide (Mag-Ox 400) 400 mg BID PO Last administered on 08/03/16 09:23 ; Admin Dose 400 MG; Start 07/31/16 at 21:00 Pioglitazone HCl (Actos) 30 mg DAILY PO Last administered on 08/03/16 09:22; Admin Dose 30 MG; Start 08/01/16 at 09:00 Miscellaneous Information 1 ea NOTE XX ; Start 07/31/16 at 17:30 Glucose (Glutose) 15 gm Q15M PRN PO DECREASED GLUCOSE; Start 07/31/16 at 17:30 Glucose (Glutose) 22.5 gm Q15M PRN PO DECREASED GLUCOSE; Start 07/31/16 at 17:30 Dextrose (D50w Syringe) 25 ml Q15M PRN IV DECREASED GLUCOSE; Start 07/31/16 at 17:30 Dextrose (D50w Syringe) 50 ml Q15M PRN IV DECREASED GLUCOSE; Start 07/31/16 at 17:30 Glucagon (Glucagen) 1 mg Q15M PRN IM DECREASED GLUCOSE; Start 07/31/16 at 17:30 Glucose (Glutose) 15 gm Q15M PRN BUCCAL DECREASED GLUCOSE; Start 07/31/16 at 17: 30 Tamsulosin HCl (Flomax) 0.8 mg HS PO Last administered on 08/02/16 20:20; Admin Dose 0.8 MG; Start 08/01/16 at 21:00 Miscellaneous Information (* Miscellaneous Pharmacy Order) pt has acute renal failure---ple... ONCE XX ; Start 08/01/16 at 09:00 Vancomycin HCl PER PHARMACY DOSING NOTE XX ; Start 08/01/16 at 10:30 Vancomycin HCl (Vancocin) 250 ml @ 125 mls/hr Q12H IVPB ; Start 08/03/16 at 14: 00 OTILIA MENDEZ MD Aug 03, 2016 12:28
[2016-08-03] MEDS ORDERED: SOD CHLORIDE 0.9% 100 ML ONE (12:59)
[2016-08-03] MEDS ORDERED: MAGNESIUM SULFATE 2 GM/50 ML 50 ML IVPB ONE (13:00)
[2016-08-03] MEDS ORDERED: SODIUM PHOSPHATE 30 MMOL in SOD CHLORIDE 0.9% 250 ML IVPB ONE (13:15)
--- NOTE | 2016-08-03 13:44 | RADRPT ---
PROCEDURE: XR Chest. CLINICAL INDICATION: Check PICC line position. TECHNIQUE: Single frontal view. COMPARISON: 08/01/2016. FINDINGS: There is a left arm PICC line with the tip in the lower superior vena cava. There is mild right bas ilar atelectasis. The lungs are otherwise clear. The heart size is normal. There is no pleural effusion. There is no pneumothorax. IMPRESSION: 1. Satisfactory position of left arm PICC line. 2. Mild right basilar atelectasis. 3. Otherwise normal chest x-ray. RPTAT: QQ .Job Whitfield MD, MD Date Time Electronically viewed and signed by .Job Whitfield MD, MD on 08/03/2016 13:44 .R/
--- NOTE | 2016-08-03 13:45 | RADRPT ---
PROCEDURE: Ultrasound guidance for placement of needle in left upper extremity vein. CLINICAL INDICATION: Venous access. TECHNIQUE: Limited sonography of the left upper extremity was performed. Ultrasound images were recorded and s tored in the patient's medical record. COMPARISON: None. FINDINGS: The ultrasound images demonstrate a patent left upper extremity vein. The PICC line was inserted by the PICC line nurse. IMPRESSION: 1. Ultrasound guidance for a needle placement in a left upper extremity vein. 2. The left upper extremity vein is patent. RPTAT: QQ .Job Whitfield MD, MD Date Time Electronically viewed and signed by .Job Whitfield MD, MD on 08/03/2016 13:44 .R/
[2016-08-03] MEDS ORDERED: VANCOMYCIN 1 GM in NS 250 ML IVPB SCH (14:00)
--- NOTE | 2016-08-03 14:48 | CONS ---
Date/Time of Note Date/Time of Note DATE: 08/03/16 TIME: 14:46 Assessment/Plan Assessment/Plan Chief Complaint/Hosp Course SUBJECTIVE: No acute changes. The patient is sleeping, looks comfortable, no fevers. ANTIMICROBIALS: Vancomycin. PHYSICAL EXAMINATION: GENERAL: Well-developed elderly man who is in no distress. HEENT: Head atraumatic, normocephalic. Sclerae anicteric. Buccal mucosa pink. NECK: Supple. CHEST: Rise symmetrical. Breath sounds clear. HEART: S1, S2. ABDOMEN: Soft, bowel tones present. EXTREMITIES: Without cyanosis. ASSESSMENT: 1. Status post right ankle surgery, postop day #2. 2. 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 3. Urinary retention. 4. Diabetes==> needs better control of BS. PLAN: Stable. Continue Vanco for 2 more weeks, continue PT, f/u ortho rec-s, BS control, s/p PICC DW staff Problems: Consultation Date/Type/Reason Admit Date/Time Jul 31, 2016 at 05:18 Initial Consult Date Type of Consultation: ID Exam/Review of Systems Vital Signs Vitals Vital Signs Date Time Temp Pulse Resp B/P Pulse Ox O2 Delivery O2 Flow Rate FiO2 08/03/16 13:00 18 08/03/16 09:01 97.4 75 136/84 98 08/03/16 05:15 Nasal Cannula 2.0 Intake and Output 08/02/16 08/02/16 08/03/16 15:00 23:00 07:00 Intake Total 875 ml 1300 ml 1190 ml Output Total 930 ml 1250 ml Balance 875 ml 370 ml -60 ml Results Result Diagram: 08/03/16 0854 08/03/16 0854 Results 24 hrs Laboratory Tests Test 08/02/16 17:55 08/02/16 20:25 08/03/16 08:12 08/03/16 08:54 Bedside Glucose 263 H 284 H 248 H White Blood Count 8.0 Red Blood Count 3.25 L Hemoglobin 8.7 #L Hematocrit 27.4 L Mean Corpuscular Volume 84.3 Mean Corpuscular Hemoglobin 26.8 L Mean Corpuscular Hemoglobin Concent 31.8 L Red Cell Distribution Width 14.1 Platelet Count 105 L Mean Platelet Volume 11.1 H Neutrophils % 79.0 H Lymphocytes % 11.6 L Monocytes % 6.7 Eosinophils % 1.9 Basophils % 0.2 Nucleated Red Blood Cells % 0.0 Neutrophils # 6.4 Lymphocytes # 0.9 Monocytes # 0.5 Eosinophils # 0.2 Basophils # 0.0 Nucleated Red Blood Cells # 0.0 Sodium Level 130 L Potassium Level 4.2 Chloride Level 95 L Carbon Dioxide Level 29 Anion Gap 10 Blood Urea Nitrogen 15 # Creatinine 0.93 Glucose Level 247 H Calcium Level 8.2 L Phosphorus Level 2.0 L Magnesium Level 1.8 Test 08/03/16 13:10 Bedside Glucose 253 H Medications Medications Current Medications Senna/Docusate Sodium (Senokot-S) 1 tab BID PO Last administered on 08/03/16 09 :22; Admin Dose 1 TAB; Start 07/31/16 at 09:00 Magnesium Hydroxide (Milk Of Mag) 30 ml HS PO Last administered on 08/02/16 20: 21; Admin Dose 30 ML; Start 08/02/16 at 21:00 Bisacodyl 10 mg 10 mg DAILY PRN AL CONSTIPATION; Start 07/31/16 at 07:30 Sodium Chloride (NS) 1,000 ml @ 20 mls/hr Q24H IV Last administered on 05:15; Admin Dose 50 MLS/HR; Start 07/31/16 at 09:00 Oxycodone/ Acetaminophen (Percocet (5/ 325)) 2 tab Q4H PRN PO PAIN Last administered on 08/03/16 13:27; Admin Dose 2 TAB; Start 07/31/16 at 07:30 Morphine Sulfate (morphine) 5 mg Q4H PRN IV PAIN LEVEL 7-10; Start 07/31/16 at 07:30 Ondansetron HCl (Zofran Inj) 4 mg Q4H PRN IV NAUSEA AND/OR VOMITING; Start 07/31 at 07:30 Diphenhydramine HCl (Benadryl) 25 mg Q4H PRN PO ITCHING; Start 07/31/16 at 07:30 Hydromorphone HCl (Dilaudid AMUSEMENT CENTRE MANAGER) MG/HR CONTINUOUS RATE ... Q4PCA IV Last administered on 08/03/16 04:40; Admin Dose 6 MG; Start 07/31/16 at 07:30 Carvedilol (Coreg) 3.125 mg BID PO Last administered on 08/03/16 09:24; Admin Dose 3.125 MG; Start 07/31/16 at 21:00 Duloxetine HCl (Cymbalta) 60 mg BID PO Last administered on 08/03/16 09:23; Admin Dose 60 MG; Start 07/31/16 at 21:00 Magnesium Oxide (Mag-Ox 400) 400 mg BID PO Last administered on 08/03/16 09:23 ; Admin Dose 400 MG; Start 07/31/16 at 21:00 Pioglitazone HCl (Actos) 30 mg DAILY PO Last administered on 08/03/16 09:22; Admin Dose 30 MG; Start 08/01/16 at 09:00 Miscellaneous Information 1 ea NOTE XX ; Start 07/31/16 at 17:30 Glucose (Glutose) 15 gm Q15M PRN PO DECREASED GLUCOSE; Start 07/31/16 at 17:30 Glucose (Glutose) 22.5 gm Q15M PRN PO DECREASED GLUCOSE; Start 07/31/16 at 17:30 Dextrose (D50w Syringe) 25 ml Q15M PRN IV DECREASED GLUCOSE; Start 07/31/16 at 17:30 Dextrose (D50w Syringe) 50 ml Q15M PRN IV DECREASED GLUCOSE; Start 07/31/16 at 17:30 Glucagon (Glucagen) 1 mg Q15M PRN IM DECREASED GLUCOSE; Start 07/31/16 at 17:30 Glucose (Glutose) 15 gm Q15M PRN BUCCAL DECREASED GLUCOSE; Start 07/31/16 at 17: 30 Tamsulosin HCl (Flomax) 0.8 mg HS PO Last administered on 08/02/16 20:20; Admin Dose 0.8 MG; Start 08/01/16 at 21:00 Miscellaneous Information (* Miscellaneous Pharmacy Order) pt has acute renal failure---ple... ONCE XX ; Start 08/01/16 at 09:00 Vancomycin HCl PER PHARMACY DOSING NOTE XX ; Start 08/01/16 at 10:30 Vancomycin HCl (Vancocin) 250 ml @ 125 mls/hr Q12H IVPB ; Start 08/03/16 at 14: 00 Insulin Glargine 12 unit 12 unit HS SC ; Start 08/03/16 at 21:00 Sodium Phosphate 30 mmol/Sodium Chloride 260 ml @ 65 mls/hr ONCE ONCE IVPB ; Start 08/03/16 at 13:15; Stop 08/03/16 at 17:14 Magnesium Sulfate (Magnesium Sulfate 2 Gm/50 ml) 50 ml @ 25 mls/hr ONCE ONCE IVPB Last administered on 08/03/16t 13:28; Admin Dose 25 MLS/HR; Start 08/03/16 at 13:00; Stop 08/03/16 at 14:59 IV Flush (NS 10 ml) 10 ml PRN PRN IV IV PROTOCOL; Start 08/03/16 at 13:30 YESSI WREN EGG BREAKER Aug 03, 2016 14:48
[2016-08-03] MEDS: RIVAROXABAN 10 MG TABLET PO SCH (17:39)
[2016-08-03] MEDS ORDERED: INSULIN GLARGINE [LANtus] 3 ML PEN SC SCH (21:00)
--- NOTE | 2016-08-05 06:31 | DS ---
DATE OF ADMISSION: 07/31/2016 DATE OF DISCHARGE: 08/03/2016 DISCHARGE DIAGNOSES: 1. Status post infected right ankle fusion 2. Residual pain after infection debridement in the ankle with nonunion. 3. Degenerative joint disease, subtalar joint. SURGERY: On 07/31/2016 was : 1. Oblique fibular osteotomy of the right ankle. 2. Takedown nonunion ankle fusion with multiple cultures. 3. Debridement and refusion of the ankle. 4. Debridement and fusion of the subtalar joint. 5. Iliac crest bone graft and ground up fibula plus Ignite to the ankle and subtalar fusions. 6. Insertion of a Valor intramedullary alice to perform a tibiotalar calcaneal fusion. HISTORY OF PRESENT ILLNESS: The patient is a 71-year-old male with a long history of degenerative a rthritis in his right ankle. He underwent arthroscopic ankle fusion, but postoperatively, at 8 weeks , developed an infection. The hardware was removed. The ankle subsequently was debrided. He was brent ated with 6 weeks of IV antibiotics per Dr. Robert Jimenez with vancomycin. Follow up cultures were negative. The patient was taken back to surgery now for a right tibiotalar calcaneal fusion with i ntramedullary alice. PAST MEDICAL HISTORY: See the history and physical record. PHYSICAL EXAMINATION: Normal except for the orthopedic exam which revealed diffuse pain in the ankl e with multiple incisions. LABORATORY: Revealed a high A1c and somewhat elevated blood glucose, otherwise was intact. His arabella st x-ray was stable. EKG was stable. HOSPITAL COURSE: The patient was taken to the operating room and underwent the above-mentioned proc edure. Postoperatively, he was managed with Dr. Jimenez and Dr. Otilia Carolina. He had a Calderon inserte d the first night and it was removed the next day and he was able to urinate. A PICC line was inser georgiana so he could have an additional 2 weeks of IV vancomycin 1 gram. He was up ambulating, nonweightb earing with the physical therapist. He was able to be discharged home with his PICC line and he will get the IV vancomycin per Dr. Jimenez. He will be seen in the office in 1 week. Dictated By: KATIA SAUCEDA/RIAZ Conf#: [id number] DID#: [id number] CC: ROBERT JIMENEZ MD; OTILIA CAROLINA MD;*[facility]*
--- NOTE | 2016-08-07 12:25 | PQ ---
Date/Time of Note Date/Time of Note DATE: 08/07/16 TIME: 12:20 Physician Query Documentation Clarification Dear Dr. Carolina, A review of the medical record found a need for documentation clarification. Na = 134--> 130 ( 08/03) Tx : NaCl 1000cc Please clarify a diagnosis/ clinical significance of the abnormal lab. result being treated. To facilitate accurate and complete coding, please kevin ( x ) the suspected diagnosis that apply: ( ) hyponatremia ( ) hypernatremia ( ) No clinical significance Please provide your response by clicking edit document, making your choice ( x ), click ok/save and finally click sign. You may also document your response on your progress notes. Thank you for your time. Horace Nevarez RN, BSN, CCS, CCDS Clinical Vice President Of [employer] Health Information Management, CDI and Coding Services [phone] Room # 1525 - Coding [address]~ [address] HORACE NEVAREZ Aug 07, 2016 12:25
== END 2016-08-03 19:20 | disposition home or self-care (01) | DRG 493 ==
LOC: REC 05:18 → MS1 16:25
PROVIDERS: ADMIT Orthopaedic Surgery; ATTEND Orthopaedic Surgery
PROC: 0SGH07Z Fusion of Right Tarsal Joint with Autologous Tissue Substitute, Open Approach (ICD-10-PCS; 2016-07-31)
PROC: 0QB20ZZ Excision of Right Pelvic Bone, Open Approach (ICD-10-PCS; 2016-07-31)
PROC: 0QTJ0ZZ Resection of Right Fibula, Open Approach (ICD-10-PCS; 2016-07-31)
PROC: 0QBG0ZZ Excision of Right Tibia, Open Approach (ICD-10-PCS; 2016-07-31)
PROC: 07DR0ZZ Extraction of Iliac Bone Marrow, Open Approach (ICD-10-PCS; 2016-07-31)
PROC: 0SGF0ZZ (ICD-10-PCS; principal; 2016-07-31 07:00)
PROC: 30233N1 Transfusion of Nonautologous Red Blood Cells into Peripheral Vein, Percutaneous Approach (ICD-10-PCS; 2016-08-02)
DX: M96.0 Pseudarthrosis after fusion or arthrodesis (principal); Z68.41 Body mass index [BMI] 40.0-44.9, adult; N17.9 Acute kidney failure, unspecified; E87.1 Hypo-osmolality and hyponatremia; E11.9 Type 2 diabetes mellitus without complications
CPT/HCPCS: 36430; 36569; 71010; 76937; 80048; 80053; 80202; 81001; 81003; 82306; 82962; 83735; 84100; 84132; 84300; 85025; 85610; 85730; 86644; 86850; 86900; 86901; 86920; 87070; 87075; 87086; 87102; 97162; 97530; C1713; J0330; J0690; J1100; J1170; J1200; J1815; J2001; J2175; J2250; J2405; J2710; J2795; J3010; J3370; J3475; J7030; J7050; P9016